=== PATIENT | female | born 1975 | race Caucasian/White ===

== ENCOUNTER → 2021-02-09 09:19 | Outpatient (CLI) | payer MEDICAID, SELFPAY ==
[2021-02-09 10:33] LABS: Absolute Lymphocyte Count 3.04 X10^3/uL (0.83-4.51); Absolute Neutrophil Count 4.5 X10^3/uL (2.0-7.7); Basophil# 0.09 X10^3/uL; Basophil% 1.1 % (0-1); Eosinophil# 0.27 X10^3/uL; Eosinophils% 3.3 % (0-5); Hematocrit 39.2 % (37-47); Hemoglobin 12.6 g/dL (12.0-15.0); Lymphocyte # 3.04 X10^3/ul (0.83-4.51); Lymphocyte % 36.9 % (19-41); Mean Corp Hgb Conc 32.1 g/dL (32-36); Mean Corpuscular Hgb 30.8 pg (27.0-32.0); Mean Corpuscular Volume 95.8 fL (81-99); Mean Platelet Vol. 11.5 fl (6.2-12.0); Monocyte# 0.34 X10^3/uL; Monocyte% 4.1 % (0-10); NRBC Flagged by Analyzer 0 % (0-5); Neutrophil # 4.48 X10^3/uL (2.7-7.7); Neutrophil % 54.4 % (47-70); Platelet Count 210 K/mm3 (150-450); RBC Distribution Width CV 14.4 % (11.6-14.6); RBC Distribution Width SD 51.3 fl (35.1-43.9); Red Blood Count 4.09 M/mm3 (4.2-5.4); White Blood Count 8.2 K/mm3 (4.4-11.0)
[2021-02-09 10:48] LABS: Hemoglobin A1c 5.9 % (3.8-5.6)
[2021-02-09 12:39] LABS: ALB/GLOB Ratio 0.8 RATIO (0.9-2.4); AST(SGOT) 16 U/L (15-37); Alanine Aminotransfer ALT/SGPT 22 U/L (13-56); Albumin, Serum 3.4 g/dL (3.2-5.0); Alkaline Phosphatase 50 U/L (45-117); Anion Gap 4 (5-15); BUN 13 mg/dL (7-18); BUN/Creat Ratio 12.4 RATIO (10-20); Chloride 105 mmol/L (98-107); Cholesterol 284 mg/dL (200); Creatinine, Serum 1.05 mg/dL (0.55-1.02); EST Glomerular Filtration Rate 60 mL/min (>60); Est Glom Filt Rate - Afr Amer 73 mL/min (>60); Globulin 4.1 g/dL (2.2-4.2); Glucose 98 mg/dL (74-106); High Density Lipoprotein 58 mg/dL; Protein, Total 7.5 g/dL (6.4-8.2); Sodium Level 137 mmol/L (136-145); Triglycerides 205 mg/dL; Very Low Density Lipoprotein 41 mg/dL (5-40)
== END ==
PROVIDERS: PCP Family Medicine; Referring Provider Family Medicine; Visit Provider Family Medicine
DX: E11.9 Type 2 diabetes mellitus without complications (principal); E03.9 Hypothyroidism, unspecified
CPT/HCPCS: 36415; 80053; 80061; 83036; 84443; 85025

== ENCOUNTER → 2021-03-28 09:53 | Outpatient (CLI) | payer MEDICAID, SELFPAY ==
[2021-03-28 10:28] LABS: Absolute Neutrophil Count 6.7 X10^3/uL (2.0-7.7); Basophil# 0.04 X10^3/uL; Basophil% 0.5 % (0-1); Eosinophil# 0.07 X10^3/uL; Eosinophils% 0.8 % (0-5); Hematocrit 40.5 % (37-47); Hemoglobin 13.1 g/dL (12.0-15.0); Lymphocyte % 15.9 % (19-41); Mean Corp Hgb Conc 32.3 g/dL (32-36); Mean Corpuscular Hgb 31.6 pg (27.0-32.0); Mean Corpuscular Volume 97.6 fL (81-99); Mean Platelet Vol. 11.9 fl (6.2-12.0); Monocyte# 0.51 X10^3/uL; Monocyte% 5.8 % (0-10); NRBC Flagged by Analyzer 0 % (0-5); Neutrophil # 6.74 X10^3/uL (2.7-7.7); Neutrophil % 76.5 % (47-70); Platelet Count 169 K/mm3 (150-450); RBC Distribution Width CV 12.9 % (11.6-14.6); RBC Distribution Width SD 46.5 fl (35.1-43.9); Red Blood Count 4.15 M/mm3 (4.2-5.4); White Blood Count 8.8 K/mm3 (4.4-11.0)
[2021-03-28 10:48] LABS: ALB/GLOB Ratio 0.8 RATIO (0.9-2.4); AST(SGOT) 13 U/L (15-37); Alanine Aminotransfer ALT/SGPT 20 U/L (13-56); Albumin, Serum 3.4 g/dL (3.2-5.0); Alkaline Phosphatase 74 U/L (45-117); Anion Gap 5 (5-15); BUN 12 mg/dL (7-18); BUN/Creat Ratio 10.7 RATIO (10-20); Chloride 105 mmol/L (98-107); Creatinine, Serum 1.12 mg/dL (0.55-1.02); EST Glomerular Filtration Rate 56 mL/min (>60); Est Glom Filt Rate - Afr Amer 67 mL/min (>60); Globulin 4.2 g/dL (2.2-4.2); Glucose 108 mg/dL (74-106); Protein, Total 7.6 g/dL (6.4-8.2); Sodium Level 137 mmol/L (136-145)
== END ==
PROVIDERS: Family Medicine; PCP Family Medicine; Visit Provider Family Medicine
DX: N39.0 Urinary tract infection, site not specified (principal)
CPT/HCPCS: 36415; 80053; 85025; 87086

== ENCOUNTER → 2021-03-28 10:29 | Outpatient (CLI) | payer MEDICAID, SELFPAY ==
--- NOTE | 2021-03-28 10:31 | CT_ITS ---
STUDY: CT ABDOMEN AND PELVIS WITH CONTRAST REASON FOR EXAM: Female, 45 years old. Hematuria. Right flank pain. PYELONEPHRITIS OF RIGHT KIDNEY RADIATION DOSAGE (If Supplied By Facility): CTDIvol = ( 21.66 ) mGy, DLP = ( 2314.15 ) mGycm TECHNIQUE: Transaxial images were obtained from the dome of the diaphragm to the symphysis pubis without oral contrast. IV 100mL Isovue-300 was administered. Sagittal and coronal images were reconstructed. Individualized dose optimization techniques were used for this CT. COMPARISON: None. FINDINGS: The visualized lung bases are unremarkable. The visualized portions of the heart are within normal limits. Calcified granuloma in the inferior medial aspect of the right lobe of the liver. There are surgical clips in the gallbladder fossa consistent with a prior cholecystectomy. Normal spleen. Normal pancreas. Normal bilateral adrenal glands. Mild degree of right perinephric stranding. Mild degree of heterogeneous contrast uptake in the superior lateral midportion of the right kidney. This may represent a focal area of pyelonephritis. No evidence of perirenal or renal abscess is seen at this time. Normal left kidney. Normal visualized stomach. Normal small intestine. Normal colon. The appendix is visualized and appears normal. There is scattered atherosclerotic calcification of the abdominal aorta, without a demonstrated aneurysm. Normal inferior vena cava. Normal retroperitoneum. Normal urinary bladder. Normal abdominal wall. There are mild degenerative changes of the visualized lumbar spine. CT/Abdomen/Pelvis WITH Contrast IMPRESSION: Mild degree of right perinephric stranding with the heterogeneous enhancement in the upper mid posterior aspect of the right kidney. This may represent a focal area of pyelonephritis. Clinical correlation is recommended. Electronically Signed: Joseph Ceballos MD at 11:23 EDT , Service support ,
== END ==
PROVIDERS: PCP Family Medicine; Referring Provider Family Medicine; Visit Provider Family Medicine
DX: N12 Tubulo-interstitial nephritis, not specified as acute or chronic (principal)
CPT/HCPCS: 36415; 74177; 80053; 85025; 87086; 87088; 87186; Q9967

== ENCOUNTER 2021-04-02 09:40 | Emergency (ER) | payer MEDICAID, SELFPAY ==
[2021-04-02 09:41] VITALS: BP 166/104; PULSE 82; RESP 16; TEMP 37; O2SAT 98; BMI 48.7
[2021-04-02 09:43] VITALS: BP 166/104; PULSE 82; RESP 16; TEMP 37; O2SAT 98
--- NOTE | 2021-04-02 10:09 | ED.VIS.FEGU ---
HPI HPI - Female History of Present Illness Chief Complaint: Complaint Narrative Narrative: 45-year-old female presenting with right flank pain. She states that she had this on the and was diagnosed with pyelonephritis. She has been on Cipro for 5 days. She states her flank pain initially was improving and now has become worse again. Patient states she has had a subjective fever at home. She has nausea as well. She denies vaginal complaints. She denies history of kidney stones. She states she had a CT of the abdomen pelvis when she was diagnosed and did not have any kidney stones noted on the CT but it was noted she had pyelonephritis. PFSH PFSH Allergy/AdvReac Type Severity Reaction Status Date / Time Penicillins Allergy Swelling Verified 04/02/21 09:41 Social History Smoking Status: Unknown if ever smoked ROS ROS ED Constitutional Constitutional ED: Reports fever(s) and subjective Eyes Eyes: Denies blurry vision or change in vision ENT ENT ED: Denies ear pain, rhinorrhea or sore throat Cardiovascular Cardiovascular: Denies chest pain or palpitations Respiratory/Chest Respiratory/Chest: Denies cough or dyspnea Gastrointestinal Gastrointestinal: Reports abdominal pain and nausea; Denies diarrhea or vomiting Genitourinary Genitourinary ED: Reports dysuria and urinary frequency Musculoskeletal Musculoskeletal: Denies arthralgias or myalgias Integumentary Denies abscess or rash Neurologic Neurologic: Denies headache(s) or paresthesias Psychiatric Psychiatric: Denies anxiety or depression EXAM Physical Exam Const Vital Signs: 04/02/21 09:41 04/02/21 09:43 04/02/21 11:56 Temperature 98.6 F 98.6 F Temperature Source Temporal Temporal Pulse Rate 82 82 Respiratory Rate 16 16 Blood Pressure 166/104 H 166/104 H 133/69 H Blood Pressure Mean 124 124 Pulse Ox 98 98 Oxygen Delivery Method Room Air Room Air Positive well nourished General Appearance ED: NAD HEENT Reports moist mucous membranes Negative for trauma Eyes PERRL and EOMs intact bilaterally Resp normal respiratory effort and clear to auscultation bilaterally Cardio regular rate and regular rhythm GI normal to inspection, nondistended, normoactive bowel sounds Back/Spine General Back: CVA tenderness right Extremity normal to inspection General Extremety ED: Negative for edema General Extremity: Negative for edema Neuro oriented x3 Sensorium / Orientation: alert Skin no rashes or lesions noted and no wounds MDM MDM MDM Narrative Medical decision making narrative: Patient presenting for increased pain she thought was due to pyelonephritis. She does appear to have some CVA tenderness on the right however her lab work-up is normal. She has no leukocytosis. It does appear that her urinalysis is negative here today. Patient's urine culture showed that she would have been sensitive to Cipro. Patient was given morphine and then Dilaudid for pain which did improve her pain. CT of the abdomen pelvis does not identify any kidney stones or evidence of kidney infection. Patient counseled on findings and I feel at this time she is safe to be discharged home given her negative work-up. Urine culture was sent to get. Patient given return precautions. Impression: 1. Flank pain Lab Data Attestation: I reviewed the patient's lab results. Labs: Laboratory Results - last 24 hr 04/02/21 04/02/21 04/02/21 10:00 10:20 10:20 WBC 7.2 RBC 4.38 Hgb 13.7 Hct 41.4 MCV 94.5 MCH 31.3 MCHC 33.1 RDW Std Deviation 44.5 H RDW Coeff of [place] 12.8 Plt Count 273 MPV 11.0 Immature Gran % (Auto) 0.400 Neut % (Auto) 53.4 Lymph % (Auto) 39.4 Levy % (Auto) 3.6 Eos % (Auto) 2.5 Baso % (Auto) 0.7 Absolute Neuts (auto) 3.9 Absolute Lymphs (auto) 2.85 Nucleated RBC % 0 Sodium 138 Potassium 4.1 Chloride 107 Carbon Dioxide 26.0 Anion Gap 5 BUN 10 Creatinine 0.81 Estim Creat Clear Calc 85.29 Est GFR (MDRD) Af Amer 98 Est GFR (MDRD) Non-Af 81 BUN/Creatinine Ratio 12.3 Glucose 101 Calcium 9.2 Urine Color Yellow Urine Clarity Sl. Cloudy Urine pH 6.5 Ur Specific [place] 1.015 Urine Protein Negative Urine Glucose (UA) Normal Urine Ketones Negative Urine Occult Blood Negative Urine Nitrite Negative Urine Bilirubin Negative Urine Urobilinogen Normal Ur Leukocyte Esterase 25 H Urine RBC 0 SEEN Urine WBC 0-5 SEEN Ur Squamous Epith Cells 5-10 SEEN Urine Bacteria 1+ Urine Mucus 0 SEEN Radiography Diagnostic Testing: Radiology Impression Abdomen/Pelvis CT 04/02/21 11:06 IMPRESSION: Decreased inflammatory changes surrounding the right kidney. Mild diverticulosis. Electronically Signed: Milena Stein MD at 11:37 EDT Tel , Service support , Discharge Plan Triage Chief Complaint: Complaint ED Provider: Obdulio Adamson Dx/Rx/DC Orders Instructions: ED Flank Pain, Uncertain Cause Primary Care Provider: Jose Wolf Referrals: Jose Wolf MD [Primary Care Provider] - Disposition Disposition: Home, Self Care Discharge Date/Time: 04/02/21 12:00
[2021-04-02 10:16] LABS: Mucous, Urine 0 SEEN /hpf (<or=2+); Red Blood Cells-Urine 0 SEEN /hpf (0-5)
[2021-04-02 10:20] LABS: Color, Urine Yellow (Yellow); Glucose, Dipstick Normal (Normal); Ketone-Dipstick Negative (Negative); Leukocyte Esterase-Dipstick 25 /ul (Negative); Nitrite-Dipstick Negative (Negative); Occult Blood-Urine Negative /ul (Negative); Protein-Dipstick Negative (Negative); Specific Gravity, Urine 1.015 (1.002-1.030); Urine Bilirubin Dipstick Negative (Negative); Urine Clarity Sl. Cloudy (Clear); Urine Urobilinogen Normal (Normal); Urine pH 6.5 (5.0 - 8.0)
[2021-04-02] MEDS: Morphine 4 MG/ML Syringe IV (10:23)
[2021-04-02] MEDS: Ondansetron 4 MG/2 ML Vial IV ×2 (10:24→11:11)
[2021-04-02 10:26] LABS: Absolute Lymphocyte Count 2.85 X10^3/uL (0.83-4.51); Absolute Neutrophil Count 3.9 X10^3/uL (2.0-7.7); Basophil# 0.05 X10^3/uL; Basophil% 0.7 % (0-1); Eosinophil# 0.18 X10^3/uL; Eosinophils% 2.5 % (0-5); Hematocrit 41.4 % (37-47); Hemoglobin 13.7 g/dL (12.0-15.0); Lymphocyte # 2.85 X10^3/ul (0.83-4.51); Lymphocyte % 39.4 % (19-41); Mean Corp Hgb Conc 33.1 g/dL (32-36); Mean Corpuscular Hgb 31.3 pg (27.0-32.0); Mean Corpuscular Volume 94.5 fL (81-99); Monocyte# 0.26 X10^3/uL; Monocyte% 3.6 % (0-10); NRBC Flagged by Analyzer 0 % (0-5); Neutrophil # 3.87 X10^3/uL (2.7-7.7); Neutrophil % 53.4 % (47-70); Platelet Count 273 K/mm3 (150-450); RBC Distribution Width CV 12.8 % (11.6-14.6); RBC Distribution Width SD 44.5 fl (35.1-43.9); Red Blood Count 4.38 M/mm3 (4.2-5.4); White Blood Count 7.2 K/mm3 (4.4-11.0)
[2021-04-02 10:27] LABS: White Blood Cells 0-5 SEEN /hpf (0-5)
[2021-04-02 10:28] LABS: Bacteria 1+ /hpf (None Seen); Squamous Epithelial Cells - UA 5-10 SEEN /hpf (5-10)
[2021-04-02 10:39] LABS: Anion Gap 5 (5-15); BUN 10 mg/dL (7-18); BUN/Creat Ratio 12.3 RATIO (10-20); Calcium,Total 9.2 mg/dL (8.5-10.1); Chloride 107 mmol/L (98-107); Creatinine, Serum 0.81 mg/dL (0.55-1.02); EST Glomerular Filtration Rate 81 mL/min (>60); Est Glom Filt Rate - Afr Amer 98 mL/min (>60); Estimated Creatinine Clearance 85.29 ml/min; Glucose 101 mg/dL (74-106); Potassium 4.1 mmol/L (3.5-5.1); Sodium Level 138 mmol/L (136-145)
--- NOTE | 2021-04-02 11:06 | CT_ITS ---
STUDY: CT ABDOMEN AND PELVIS WITHOUT CONTRAST REASON FOR EXAM: Female, 45 years old. right flank pain RADIATION DOSAGE (If Supplied By Facility): CTDIvol = ( 24.18 ) mGy, DLP = ( 1316.88 ) mGycm TECHNIQUE: Transaxial images were obtained from the dome of the diaphragm to the symphysis pubis without oral contrast, and without intravenous contrast. Sagittal and coronal images were reconstructed. Individualized dose optimization techniques were used for this CT. COMPARISON: 03/28/2021 FINDINGS: The visualized lung bases are unremarkable. Normal liver. There are surgical clips in the gallbladder fossa consistent with a prior cholecystectomy. Normal spleen. Normal pancreas. Normal bilateral adrenal glands. There is decreased perinephric stranding when compared with the prior examination. There are no demonstrated fluid collection to suggest abscess. Evaluation is limited without IV contrast. Again noted is a minimal prominence of the right renal pelvis. Unremarkable left kidney. Normal visualized stomach. Normal small intestine. There are few colonic diverticula consistent with diverticulosis. The appendix is visualized and appears normal. There is atherosclerotic calcifications of the abdominal aorta Normal urinary bladder. Normal abdominal wall. There are diffuse degenerative changes of the visualized lumbar spine. CT/Abdomen/Pelvis without Cont IMPRESSION: Decreased inflammatory changes surrounding the right kidney. Mild diverticulosis. Electronically Signed: Milena Stein MD at 11:37 EDT Tel , Service support ,
[2021-04-02] MEDS: HYDROmorphone 0.5 MG/0.5 ML SYRINGE IV (11:11)
[2021-04-02 11:56] VITALS: BP 133/69
== END 2021-04-02 12:00 | disposition home or self-care (01) ==
PROVIDERS: Emergency Provider Student in an Organized Health Care Education/Training Program; PCP Family Medicine
DX: R10.9 Unspecified abdominal pain (principal); K57.90 Diverticulosis of intestine, part unspecified, without perforation or abscess without bleeding; R11.0 Nausea; Z88.0 Allergy status to penicillin
CPT/HCPCS: 74176; 80048; 81001; 85025; 87077; 87086; 87088; 87186; 96374; 96375; 96376; 99284; J2405

== ENCOUNTER → 2021-04-13 16:00 | Outpatient (CLI) | payer MEDICAID, SELFPAY ==
[2021-04-02 09:41] VITALS: BMI 48.7
[2021-04-13 18:03] LABS: T4 Free Direct 1.14 ng/dL (0.76-1.46)
== END ==
PROVIDERS: PCP Family Medicine; Visit Provider Family Medicine
DX: E03.9 Hypothyroidism, unspecified (principal)
CPT/HCPCS: 36415; 84439; 84443; 84481

== ENCOUNTER → 2021-05-08 17:56 | Outpatient (CLI) | payer MEDICAID, SELFPAY ==
[2021-05-08 17:57] LABS: Bacteria 0 SEEN /hpf (None Seen); White Blood Cells 0 SEEN /hpf (0-5)
[2021-05-08 18:30] LABS: Color, Urine Yellow (Yellow); Glucose, Dipstick Normal (Normal); Ketone-Dipstick Negative (Negative); Leukocyte Esterase-Dipstick Negative /ul (Negative); Nitrite-Dipstick Negative (Negative); Occult Blood-Urine Negative /ul (Negative); Protein-Dipstick Negative (Negative); Urine Bilirubin Dipstick Negative (Negative); Urine Clarity Sl. Cloudy (Clear); Urine Urobilinogen Normal (Normal)
[2021-05-08 18:36] LABS: Mucous, Urine 2+ /hpf (<or=2+); Squamous Epithelial Cells - UA 5-10 SEEN /hpf (5-10)
[2021-05-08 18:37] LABS: Red Blood Cells-Urine 0-5 SEEN /hpf (0-5)
== END ==
PROVIDERS: PCP Family Medicine; Visit Provider Family Medicine
DX: R10.9 Unspecified abdominal pain (principal)
CPT/HCPCS: 81001; 87086; 87088

== ENCOUNTER → 2021-05-17 16:15 | Outpatient (CLI) | payer MEDICAID, SELFPAY ==
--- NOTE | 2021-05-17 16:37 | US_ITS ---
STUDY: RENAL ULTRASOUND - COMPLETE REASON FOR EXAM: Female, 45 years old. PYELONEPHRITIS R KIDNEY TECHNIQUE: Ultrasound evaluation of the kidneys was performed with real-time and static hamm-scale imaging. COMPARISON: None. FINDINGS: RIGHT KIDNEY: Normal location of the right kidney, which is normal in size. The right kidney measures 11.3 x 5.2 x 4.3 cm. There is a normal cortex of the right kidney. The renal cortex measures 1.1 cm. There is no right renal mass or cyst. There are no right renal calculi. There is no right hydronephrosis. DISTAL RIGHT URETER: There is non-visualization of the distal right ureter. There is no demonstrated right ureterovesical junction calculus. There is a visualized right ureteral jet. LEFT KIDNEY: Normal location of the left kidney, which is normal in size. The left kidney measures 12.8 x 4.6 x 5.2 cm. There is a normal cortex of the left kidney. The renal cortex measures 1.3 cm. There is no left renal mass or cyst. There are no left renal calculi. There is no left hydronephrosis. DISTAL LEFT URETER: There is non-visualization of the distal left ureter. There is no demonstrated left ureterovesical junction calculus. There is a visualized left ureteral jet. BLADDER: The distended urinary bladder has a volume of 119 ml.. There is a normal wall thickness of the distended urinary bladder. There is no demonstrated mass within the urinary bladder. There are no demonstrated bladder calculi. US/Kidney and Bladder IMPRESSION: Normal ultrasound of the kidneys and urinary bladder. Electronically Signed: Bolivar Card MD at 17:11 EDT , Service support ,
== END ==
PROVIDERS: PCP Family Medicine; Referring Provider Family Medicine; Visit Provider Family Medicine
DX: N12 Tubulo-interstitial nephritis, not specified as acute or chronic (principal)
CPT/HCPCS: 76770

== ENCOUNTER → 2021-05-28 12:00 | Outpatient (CLI) | payer MEDICAID, SELFPAY ==
[2021-05-28 12:17] LABS: Bacteria 0 SEEN /hpf (None Seen); Mucous, Urine 0 SEEN /hpf (<or=2+); White Blood Cells 0 SEEN /hpf (0-5)
[2021-05-28 15:26] LABS: Absolute Lymphocyte Count 2.85 X10^3/uL (0.83-4.51); Absolute Neutrophil Count 3.8 X10^3/uL (2.0-7.7); Basophil# 0.05 X10^3/uL; Basophil% 0.7 % (0-1); Eosinophil# 0.16 X10^3/uL; Eosinophils% 2.2 % (0-5); Hemoglobin 13.1 g/dL (12.0-15.0); Lymphocyte # 2.85 X10^3/ul (0.83-4.51); Lymphocyte % 39.3 % (19-41); Mean Corpuscular Hgb 30.1 pg (27.0-32.0); Mean Corpuscular Volume 94.3 fL (81-99); Mean Platelet Vol. 12.1 fl (6.2-12.0); Monocyte# 0.36 X10^3/uL; NRBC Flagged by Analyzer 0 % (0-5); Neutrophil # 3.82 X10^3/uL (2.7-7.7); Neutrophil % 52.5 % (47-70); Platelet Count 218 K/mm3 (150-450); RBC Distribution Width CV 13.3 % (11.6-14.6); RBC Distribution Width SD 46.5 fl (35.1-43.9); Red Blood Count 4.35 M/mm3 (4.2-5.4); White Blood Count 7.3 K/mm3 (4.4-11.0)
[2021-05-28 15:44] LABS: Color, Urine Yellow (Yellow); Glucose, Dipstick Normal (Normal); Ketone-Dipstick Negative (Negative); Leukocyte Esterase-Dipstick Negative /ul (Negative); Nitrite-Dipstick Negative (Negative); Occult Blood-Urine 10 /ul (Negative); Protein-Dipstick Negative (Negative); Urine Bilirubin Dipstick Negative (Negative); Urine Clarity Clear (Clear); Urine Urobilinogen Normal (Normal)
[2021-05-28 15:54] LABS: ALB/GLOB Ratio 0.8 RATIO (0.9-2.4); AST(SGOT) 13 U/L (15-37); Alanine Aminotransfer ALT/SGPT 20 U/L (13-56); Albumin, Serum 3.2 g/dL (3.2-5.0); Alkaline Phosphatase 58 U/L (45-117); Anion Gap 3 (5-15); BUN 12 mg/dL (7-18); BUN/Creat Ratio 15.6 RATIO (10-20); Calcium,Total 8.7 mg/dL (8.5-10.1); Chloride 109 mmol/L (98-107); Creatinine, Serum 0.77 mg/dL (0.55-1.02); EST Glomerular Filtration Rate 86 mL/min (>60); Est Glom Filt Rate - Afr Amer 104 mL/min (>60); Glucose 88 mg/dL (74-106); Potassium 3.9 mmol/L (3.5-5.1); Protein, Total 7.2 g/dL (6.4-8.2); Sodium Level 138 mmol/L (136-145)
[2021-05-28 16:12] LABS: Red Blood Cells-Urine 0-5 SEEN /hpf (0-5); Squamous Epithelial Cells - UA 0-5 SEEN /hpf (5-10)
== END ==
PROVIDERS: PCP Family Medicine; Visit Provider Family Medicine
DX: R10.9 Unspecified abdominal pain (principal); R19.7 Diarrhea, unspecified
CPT/HCPCS: 36415; 80053; 81001; 85025; 87086; 87088

== ENCOUNTER 2021-11-20 14:09 | Outpatient (CLI) | payer MEDICAID, SELFPAY ==
[2021-11-20 17:53] LABS: Absolute Lymphocyte Count 3.06 X10^3/uL (0.83-4.51); Absolute Neutrophil Count 3.8 X10^3/uL (2.0-7.7); Basophil# 0.05 X10^3/uL; Basophil% 0.7 % (0-1); Eosinophil# 0.21 X10^3/uL; Eosinophils% 2.8 % (0-5); Hematocrit 41.3 % (37-47); Hemoglobin 13.9 g/dL (12.0-15.0); Lymphocyte # 3.06 X10^3/ul (0.83-4.51); Lymphocyte % 40.5 % (19-41); Mean Corp Hgb Conc 33.7 g/dL (32-36); Mean Corpuscular Hgb 32.1 pg (27.0-32.0); Mean Corpuscular Volume 95.4 fL (81-99); Mean Platelet Vol. 11.7 fl (6.2-12.0); Monocyte% 5.3 % (0-10); NRBC Flagged by Analyzer 0 % (0-5); Neutrophil # 3.81 X10^3/uL (2.7-7.7); Neutrophil % 50.3 % (47-70); Platelet Count 236 K/mm3 (150-450); RBC Distribution Width CV 13.6 % (11.6-14.6); RBC Distribution Width SD 48.2 fl (35.1-43.9); Red Blood Count 4.33 M/mm3 (4.2-5.4); White Blood Count 7.6 K/mm3 (4.4-11.0)
[2021-11-20 18:04] LABS: Erythrocyte Sedimentation Rate 16 mm/hr (0-30)
[2021-11-20 18:23] LABS: ALB/GLOB Ratio 0.9 RATIO (0.9-2.4); AST(SGOT) 20 U/L (15-37); Alanine Aminotransfer ALT/SGPT 29 U/L (13-56); Albumin, Serum 3.5 g/dL (3.2-5.0); Alkaline Phosphatase 61 U/L (45-117); Anion Gap 7 (5-15); BUN 9 mg/dL (7-18); BUN/Creat Ratio 10.8 RATIO (10-20); CRP 4.74 mg/L (0.0-3.0); Calcium,Total 8.7 mg/dL (8.5-10.1); Chloride 104 mmol/L (98-107); Cholesterol 202 mg/dL (200); Creatinine, Serum 0.84 mg/dL (0.55-1.02); EST Glomerular Filtration Rate 78 mL/min (>60); Est Glom Filt Rate - Afr Amer 94 mL/min (>60); Glucose 87 mg/dL (74-106); High Density Lipoprotein 50 mg/dL; Potassium 3.6 mmol/L (3.5-5.1); Protein, Total 7.5 g/dL (6.4-8.2); Sodium Level 137 mmol/L (136-145); Triglycerides 143 mg/dL; Very Low Density Lipoprotein 29 mg/dL (5-40)
[2021-11-20 18:31] LABS: Hemoglobin A1c 6.3 % (3.8-5.6)
[2021-11-23 12:41] LABS: ANTINUCLEAR ANTIBODIES DIRECT Negative (Negative)
== END 2021-11-20 23:59 | disposition home or self-care (01) ==
LOC: MFPLAB 14:13
PROVIDERS: PCP Registered Nurse; Referring Provider Registered Nurse; Visit Provider Registered Nurse
DX: E03.9 Hypothyroidism, unspecified (principal); M25.50 Pain in unspecified joint
CPT/HCPCS: 36415; 80053; 80061; 83036; 85025; 85652; 86038; 86140

== ENCOUNTER 2022-04-08 10:16 | Emergency (ER) | payer MEDICAID, SELFPAY ==
[2022-04-08 10:17] VITALS: BP 154/103; PULSE 88; RESP 14; TEMP 36.4; O2SAT 98; BMI 46.0
--- NOTE | 2022-04-08 10:32 | EX.ED.DYSGE1 ---
HPI History of Present Illness Chief Complaint: Flank Pain Informant: patient Narrative Narrative: 46-year-old female presented to the emergency department with a chief complaint of bilateral flank pain. Patient is concerned she may have pyelonephritis. She notes some dysuria and urinary frequency and cloudy urine. She notes that she has had pain for the past several days which coincides with her urinary symptoms. She states that this feels like her prior pyelonephritis. No fevers or vomiting but she does note some nausea. She also notes that she has a herniated disc in her back that is been causing her significant amount of pain and she is currently awaiting some back injections. No changes in bowel habits. No rashes. [facility] Medical History Hypothyroid Home Medications hydrocodone-acetaminophen 5-325mg 5mg-325mg 1 tab PO Q6H PRN PRN Pain 3 days #12 TABLETS 04/08/22 [Rx Last Taken Unknown] levothyroxine 150 mcg tablet 150 mcg PO DAILY 04/08/22 [History Last Taken Unknown] sulfamethoxazole 800 mg-trimethoprim 160 mg tablet 1 tab PO BID #14 TABLETS 04/08/22 [Rx Last Taken Unknown] Allergy/AdvReac Type Severity Reaction Status Date / Time Penicillins Allergy Swelling Verified 04/08/22 10:19 Social History (Updated 04/08/22 @ 10:[address] Jose Adkins DO) Smoking Status: Light Smoker (<10/day) substance use type: does not use ROS ROS ED Constitutional Constitutional ED: Denies chills or weight loss Eyes Eyes: Denies change in vision or diplopia ENT ENT ED: Denies ear pain, rhinorrhea or sore throat Cardiovascular Cardiovascular: Denies chest pain, orthopnea, palpitations or racing heartbeat Respiratory/Chest Respiratory/Chest: Denies cough, dyspnea or orthopnea Gastrointestinal Gastrointestinal: Denies abdominal pain, diarrhea, nausea or vomiting Genitourinary Genitourinary ED: Denies dysuria, hematuria or urinary frequency Musculoskeletal Musculoskeletal: Reports back pain; Denies arthralgias, myalgias or neck pain Integumentary Denies abscess or rash Neurologic Neurologic: Denies headache(s) or weakness Psychiatric Psychiatric: Denies anxiety, depression, suicidal ideation or suicidal thoughts Endocrine Endocrinology: Denies polydipsia, polyphagia or polyuria Allergic/Immunologic Allergic/Immunologic ED: Denies mouth swelling, tongue swelling or urticaria EXAM Physical Exam Const Vital Signs: 04/08/22 10:17 Temperature 97.5 F L Temperature Source Temporal Pulse Rate 88 Respiratory Rate 14 Blood Pressure 154/103 H Blood Pressure Mean 120 Pulse Ox 98 Oxygen Delivery Method Room Air Positive well nourished, well developed and obese General Appearance ED: well developed Nutritional Appearance: obese HEENT Reports normocephalic, head/scalp atraumatic and moist mucous membranes Eyes PERRL and EOMs intact bilaterally Neck no lymphadenopathy, supple and no JVD Resp normal respiratory effort and clear to auscultation bilaterally Cardio regular rate, regular rhythm and no murmurs GI normal to inspection, nondistended, normoactive bowel sounds and non-tender Palpation: soft Back/Spine normal ROM Back/Spine Narrative: Specifically no vesicular rash noted General Back: CVA tenderness bilateral Extremity normal to inspection General Extremety ED: Negative for edema General Extremity: Negative for edema Neuro oriented x3 and CN's II-XII intact bilaterally Sensorium / Orientation: alert Motor Exam: strength 5/5 throughout Psych mental status grossly normal Mood & Affect: Negative for depressed or tearful Skin no rashes or lesions noted and no wounds MDM MDM MDM Narrative Medical decision making narrative: White count is 7.8 with a normal differential. Creatinine 0.75. Urinalysis shows 5-10 squamous cells but also 10-25 white cells positive leukocyte Estrace and 2+ bacteria. Given the patient's symptoms and her history of frequent UTIs thinks reasonable to culture this and we can start treatment with Bactrim. Patient to return if worsening or concerns Lab Data Attestation: I reviewed the patient's lab results. Labs: Laboratory Results - last 24 hr 04/08/22 04/08/22 04/08/22 10:30 10:30 10:53 WBC 7.8 RBC 4.13 L Hgb 13.1 Hct 39.7 MCV 96.1 MCH 31.7 MCHC 33.0 RDW Std Deviation 54.4 H RDW Coeff of [place] 15.2 H Plt Count 179 MPV 10.9 Immature Gran % (Auto) 0.100 Neut % (Auto) 54.2 Lymph % (Auto) 36.8 [place] % (Auto) 4.4 Eos % (Auto) 3.5 Baso % (Auto) 1.0 Absolute Neuts (auto) 4.2 Absolute Lymphs (auto) 2.87 Nucleated RBC % 0 Sodium 141 Potassium 3.9 Chloride 108 H Carbon Dioxide 24.0 Anion Gap 9 BUN 20 H Creatinine 0.75 Estim Creat Clear Calc 91.15 Est GFR (MDRD) Af Amer 107 Est GFR (MDRD) Non-Af 88 BUN/Creatinine Ratio 26.7 H Glucose 142 H Calcium 8.7 Urine Color Yellow Urine Clarity Sl. Cloudy Urine pH 6.0 Ur Specific [place] 1.020 Urine Protein 15 H Urine Glucose (UA) Normal Urine Ketones Negative Urine Occult Blood Negative Urine Nitrite Negative Urine Bilirubin Negative Urine Urobilinogen Normal Ur Leukocyte Esterase 100 H Urine RBC 0 SEEN Urine WBC 10-25 SEEN Ur Squamous Epith Cells 5-10 SEEN Urine Bacteria 2+ Urine Mucus 0 SEEN Urine Test Negative Discharge Plan Triage Chief Complaint: Flank Pain ED Provider: Jose Adkins Dx/Rx/DC Orders Clinical Impression: Pyelonephritis, Acute flank pain Instructions: ED Pyelonephritis, Female (Adult) Prescriptions: New hydrocodone-acetaminophen [hydrocodone-acetaminophen] 5-325 mg tablet 1 tab PO Q6H PRN PRN (Reason: Pain) 3 Days Qty: 12 0RF sulfamethoxazole-trimethoprim [sulfamethoxazole-trimethoprim] 800-160 mg tablet 1 tab PO BID Qty: 14 0RF No Action levothyroxine 150 mcg Tablet 150 mcg PO DAILY Primary Care Provider: Brenda Cortes NP Referrals: Brenda Cortes NP, [employer] [Primary Care Provider] - As Needed Disposition Disposition: Home, Self Care
[2022-04-08 10:40] LABS: Absolute Lymphocyte Count 2.87 X10^3/uL (0.83-4.51); Absolute Neutrophil Count 4.2 X10^3/uL (2.0-7.7); Basophil# 0.08 X10^3/uL; Eosinophil# 0.27 X10^3/uL; Eosinophils% 3.5 % (0-5); Hematocrit 39.7 % (37-47); Hemoglobin 13.1 g/dL (12.0-15.0); Lymphocyte # 2.87 X10^3/ul (0.83-4.51); Lymphocyte % 36.8 % (19-41); Mean Corpuscular Hgb 31.7 pg (27.0-32.0); Mean Corpuscular Volume 96.1 fL (81-99); Mean Platelet Vol. 10.9 fl (6.2-12.0); Monocyte# 0.34 X10^3/uL; Monocyte% 4.4 % (0-10); NRBC Flagged by Analyzer 0 % (0-5); Neutrophil # 4.23 X10^3/uL (2.7-7.7); Neutrophil % 54.2 % (47-70); Platelet Count 179 K/mm3 (150-450); RBC Distribution Width CV 15.2 % (11.6-14.6); RBC Distribution Width SD 54.4 fl (35.1-43.9); Red Blood Count 4.13 M/mm3 (4.2-5.4); White Blood Count 7.8 K/mm3 (4.4-11.0)
[2022-04-08 10:56] LABS: Anion Gap 9 (5-15); BUN 20 mg/dL (7-18); BUN/Creat Ratio 26.7 RATIO (10-20); Calcium,Total 8.7 mg/dL (8.5-10.1); Chloride 108 mmol/L (98-107); Creatinine, Serum 0.75 mg/dL (0.55-1.02); EST Glomerular Filtration Rate 88 mL/min (>60); Est Glom Filt Rate - Afr Amer 107 mL/min (>60); Estimated Creatinine Clearance 91.15 ml/min; Glucose 142 mg/dL (74-106); Potassium 3.9 mmol/L (3.5-5.1); Sodium Level 141 mmol/L (136-145)
[2022-04-08] MEDS: Ketorolac 30 MG/ML Syringe IV (10:58)
[2022-04-08 11:00] LABS: Mucous, Urine 0 SEEN /hpf (<or=2+); Red Blood Cells-Urine 0 SEEN /hpf (0-5)
[2022-04-08 11:02] LABS: Color, Urine Yellow (Yellow); Glucose, Dipstick Normal (Normal); Ketone-Dipstick Negative (Negative); Leukocyte Esterase-Dipstick 100 /ul (Negative); Nitrite-Dipstick Negative (Negative); Occult Blood-Urine Negative /ul (Negative); Protein-Dipstick 15 mg/dl (Negative); Urine Bilirubin Dipstick Negative (Negative); Urine Clarity Sl. Cloudy (Clear); Urine Urobilinogen Normal (Normal)
[2022-04-08 11:08] LABS: Bacteria 2+ /hpf (None Seen); Squamous Epithelial Cells - UA 5-10 SEEN /hpf (5-10); White Blood Cells 10-25 SEEN /hpf (0-5)
[2022-04-08 11:09] LABS: Internal QC Validated? YES +Cl - CLEAR BKGD; Pregnancy, Urine Negative Negative
[2022-04-08 12:33] VITALS: BP 142/65; PULSE 90; RESP 15; O2SAT 98
== END 2022-04-08 12:34 | disposition home or self-care (01) ==
PROVIDERS: Emergency Provider Emergency Medicine; PCP Registered Nurse; Visit Provider Emergency Medicine
DX: N12 Tubulo-interstitial nephritis, not specified as acute or chronic (principal); F17.210 Nicotine dependence, cigarettes, uncomplicated; R35.0 Frequency of micturition; R30.0 Dysuria; E03.9 Hypothyroidism, unspecified; E66.9 Obesity, unspecified; Z79.899 Other long term (current) drug therapy
CPT/HCPCS: 80048; 81001; 81025; 85025; 87086; 87088; 96374; 99282; A4216

== ENCOUNTER 2022-04-30 11:14 | Emergency (ER) | payer MEDICAID, SELFPAY ==
[2022-04-30 11:17] VITALS: BP 147/103; PULSE 82; RESP 14; TEMP 36.2; O2SAT 96; BMI 46.0
[2022-04-30 11:32] LABS: Mucous, Urine 0 SEEN /hpf (<or=2+)
[2022-04-30 11:45] LABS: Color, Urine Yellow (Yellow); Glucose, Dipstick Normal (Normal); Ketone-Dipstick Negative (Negative); Leukocyte Esterase-Dipstick 500 /ul (Negative); Nitrite-Dipstick Negative (Negative); Occult Blood-Urine 25 /ul (Negative); Protein-Dipstick 30 mg/dl (Negative); Urine Bilirubin Dipstick Negative (Negative); Urine Clarity Sl. Cloudy (Clear); Urine Urobilinogen Normal (Normal); Urine pH 6.5 (5.0 - 8.0)
[2022-04-30 11:53] LABS: Bacteria 1+ /hpf (None Seen); Internal QC Validated? YES +Cl - CLEAR BKGD; Pregnancy, Urine Negative Negative; Red Blood Cells-Urine 0-5 SEEN /hpf (0-5); Squamous Epithelial Cells - UA 0-5 SEEN /hpf (5-10); White Blood Cells 25-50 SEEN /hpf (0-5)
[2022-04-30] MEDS: 0.9% Normal Saline 1,000 ML 1000 ML IV (12:03)
[2022-04-30] MEDS: Ketorolac 15 MG/ML Vial IV (12:03)
[2022-04-30 12:13] LABS: Absolute Lymphocyte Count 2.55 X10^3/uL (0.83-4.51); Absolute Neutrophil Count 5.3 X10^3/uL (2.0-7.7); Basophil# 0.06 X10^3/uL; Basophil% 0.7 % (0-1); Eosinophil# 0.19 X10^3/uL; Eosinophils% 2.2 % (0-5); Hematocrit 37.5 % (37-47); Hemoglobin 12.8 g/dL (12.0-15.0); Lymphocyte # 2.55 X10^3/ul (0.83-4.51); Mean Corp Hgb Conc 34.1 g/dL (32-36); Mean Corpuscular Hgb 32.6 pg (27.0-32.0); Mean Corpuscular Volume 95.4 fL (81-99); Mean Platelet Vol. 11.1 fl (6.2-12.0); Monocyte# 0.42 X10^3/uL; Monocyte% 4.9 % (0-10); NRBC Flagged by Analyzer 0 % (0-5); Neutrophil # 5.25 X10^3/uL (2.7-7.7); Platelet Count 187 K/mm3 (150-450); RBC Distribution Width CV 14.8 % (11.6-14.6); RBC Distribution Width SD 52.3 fl (35.1-43.9); Red Blood Count 3.93 M/mm3 (4.2-5.4); White Blood Count 8.5 K/mm3 (4.4-11.0)
[2022-04-30 12:19] LABS: Anion Gap 3 (5-15); BUN 12 mg/dL (7-18); Calcium,Total 8.7 mg/dL (8.5-10.1); Chloride 111 mmol/L (98-107); Creatinine, Serum 0.86 mg/dL (0.55-1.02); EST Glomerular Filtration Rate 76 mL/min (>60); Est Glom Filt Rate - Afr Amer 92 mL/min (>60); Estimated Creatinine Clearance 79.49 ml/min; Glucose 110 mg/dL (74-106); Potassium 3.9 mmol/L (3.5-5.1); Sodium Level 139 mmol/L (136-145)
--- NOTE | 2022-04-30 12:47 | RAD_ITS ---
INDICATION: sob, chest tightness EXAMINATION/TECHNIQUE: X-RAY - XR Chest 2 Views COMPARISON: None. FINDINGS: LINES/DEVICES: None. LUNGS: Mild peribronchial cuffing would recommend clinical correlation for bronchitis or airway disease. The bronchovascular markings otherwise unremarkable. No consolidation, edema or effusion. No pneumothorax. MEDIASTINUM AND CARDIOVASCULAR STRUCTURES: Cardiac silhouette not enlarged. Central airways and mediastinal contour are unremarkable. BONES AND SOFT TISSUES: Unremarkable. RAD/Chest PA and Lateral IMPRESSION: Mild peribronchial cuffing would recommend clinical correlation for bronchitis or airway disease. Electronically Signed: Cesar Roman MD at 13:23 EDT ,
--- NOTE | 2022-04-30 14:08 | EDS_ITS ---
HPI History of Present Illness Chief Complaint: Complaint Informant: patient Narrative Narrative: Patient is a 46-year-old female with history of recent urinary tract infection presenting with 2 to 3 days of urinary symptoms. Patient states she has been having cloudy urine and then yesterday started having burning with urination. She had associated frequency and urgency. She started having some discomfort in her upper back and hurts to take a deep breath. She states her whole back does feel sore. That became worse today as well. This morning when she woke up she states that there is discharge from her eyes her eyes are crusted shut. Denies any cough. She denies any fever or chills. She has a history of DVT or PE. She was recently on a course of Bactrim for her UTI. She states she has had multiple kidney infections over the past few months but is not seen urology. Did not take anything for symptoms prior to arrival. No other complaint at this time. Denies any sick contacts. Chart review shows the patient was seen on 04/08/2022 for bilateral flank pain. She was prescribed Bactrim at that time. [facility] Medical History Hypothyroid Home Medications hydrocodone-acetaminophen 5-325mg 5mg-325mg 1 tab PO Q6H PRN PRN Pain 3 days #12 TABLETS 04/08/22 [Rx Last Taken Unknown] levothyroxine 150 mcg tablet 150 mcg PO DAILY 04/08/22 [History Last Taken Unknown] sulfamethoxazole 800 mg-trimethoprim 160 mg tablet 1 tab PO BID #14 TABLETS 04/08/22 [Rx Last Taken Unknown] cephalexin 500 mg capsule 500 mg PO TID #21 caps 04/30/22 [Rx Last Taken Unknown] phenazopyridine 200 mg tablet (Pyridium) 200 mg PO TID PRN pain 6 doses #6 tabs 04/30/22 [Rx Last Taken Unknown] Allergy/AdvReac Type Severity Reaction Status Date / Time Penicillins Allergy Swelling Verified 04/30/22 11:19 Social History Smoking Status: Light Smoker (<10/day) substance use type: does not use ROS ROS ED Constitutional Constitutional ED: Reports chills; Denies fever(s) Eyes Eyes: Reports other Details: eye discharge ; Denies change in vision ENT ENT ED: Denies rhinorrhea or sore throat Cardiovascular Cardiovascular: Denies chest pain or palpitations Respiratory/Chest Respiratory/Chest: Reports cough; Denies dyspnea or dyspnea on exertion Gastrointestinal Gastrointestinal: Denies abdominal pain, nausea or vomiting Genitourinary Genitourinary ED: Reports dysuria and urinary frequency; Denies hematuria Musculoskeletal Musculoskeletal: Reports back pain; Denies myalgias Integumentary Denies rash Neurologic Neurologic: Denies headache(s) or weakness Psychiatric Psychiatric: Denies anxiety EXAM Physical Exam Const Vital Signs: 04/30/22 11:17 Temperature 97.1 F L Temperature Source Temporal Pulse Rate 82 Respiratory Rate 14 Blood Pressure 147/103 H Blood Pressure Mean 117 Pulse Ox 96 Oxygen Delivery Method Room Air Positive well nourished, well developed and obese General Appearance ED: well developed and NAD Nutritional Appearance: obese HEENT Reports moist mucous membranes Eyes PERRL and EOMs intact bilaterally Eyes Narrative: no conjunctivitis or discharge appreciated Neck supple Chest Wall inspection of chest normal and palpation of chest normal Resp normal respiratory effort and clear to auscultation bilaterally Auscultation: Negative for rales, rhonchi or wheezes Cardio regular rate, regular rhythm and no murmurs GI normal to inspection, nondistended, normoactive bowel sounds, non-tender and non-distended Back/Spine no CVA tenderness Thoracic Spine / Upper Back: Negative for thoracic spinal tenderness or paraspinal muscle tenderness Lumbar Spine / Lower Back: Negative for lumbar spinal tenderness Extremity normal to inspection General Extremety ED: Negative for edema or tenderness General Extremity: Negative for edema Neuro oriented x3 Motor Exam: Negative for general weakness Psych mental status grossly normal Skin no rashes or lesions noted MDM MDM MDM Narrative Medical decision making narrative: Patient is evaluated for 3 to 4 days of urinary symptoms as well as now some back discomfort and pleuritic chest discomfort. Patient appears nontoxic no acute distress. Vital signs are significant only for mild hypertension with a blood pressure 147/103. Physical exam is benign. She is afebrile. CBC is normal. She does not have a leukocytosis. BMP is unremarkable. Urinalysis is concerning with infection with 500 leukoesterase, 25-50 white blood cells and 1+ bacteria. Urine culture sent. Patient be switched to Keflex. While she does have a history of an allergic reaction to penicillin she states she is had Keflex in the past and tolerated it. She is given first dose in the emergency room. Chest x-ray obtained which is interpreted by myself as well as radiology shows mild peribronchial cuffing consistent with bronchitis or viral illness. I suspect patient does have some type of viral URI symptoms which is causing her backslash chest symptoms. Patient is informed of this. Her COVID test is negative in the emergency room. Patient is given a referral for urology given her frequent UTIs. On repeat evaluation after receiving IV fluids and Toradol she states she is feeling better. She be discharged home with antibiotics, Prodium and instructions to alternate ibuprofen and Tylenol for symptom control. Lab Data Attestation: I reviewed the patient's lab results. Labs: Laboratory Results - last 24 hr 04/30/22 04/30/22 04/30/22 11:20 12:00 12:00 WBC 8.5 RBC 3.93 L Hgb 12.8 Hct 37.5 MCV 95.4 MCH 32.6 H MCHC 34.1 RDW Std Deviation 52.3 H RDW Coeff of [place] 14.8 H Plt Count 187 MPV 11.1 Immature Gran % (Auto) 0.200 Neut % (Auto) 62.0 Lymph % (Auto) 30.0 [place] % (Auto) 4.9 Eos % (Auto) 2.2 Baso % (Auto) 0.7 Absolute Neuts (auto) 5.3 Absolute Lymphs (auto) 2.55 Nucleated RBC % 0 Sodium 139 Potassium 3.9 Chloride 111 H Carbon Dioxide 25.0 Anion Gap 3 L BUN 12 Creatinine 0.86 Estim Creat Clear Calc 79.49 Est GFR (MDRD) Af Amer 92 Est GFR (MDRD) Non-Af 76 BUN/Creatinine Ratio 14.0 Glucose 110 H Calcium 8.7 Urine Color Yellow Urine Clarity Sl. Cloudy Urine pH 6.5 Ur Specific [place] 1.010 Urine Protein 30 H Urine Glucose (UA) Normal Urine Ketones Negative Urine Occult Blood 25 H Urine Nitrite Negative Urine Bilirubin Negative Urine Urobilinogen Normal Ur Leukocyte Esterase 500 H Urine RBC 0-5 SEEN Urine WBC 25-50 SEEN Ur Squamous Epith Cells 0-5 SEEN Urine Bacteria 1+ Urine Mucus 0 SEEN Urine Test Negative Radiography Diagnostic Testing: Clinical Impression(s) from Imaging Studies Chest X-Ray 04/30/22 12:47 IMPRESSION: Mild peribronchial cuffing would recommend clinical correlation for bronchitis or airway disease. Electronically Signed: Cesar Roman MD at 13:23 EDT , Discharge Plan Triage Chief Complaint: Complaint ED Provider: Yani Harrell Dx/Rx/DC Orders Clinical Impression: Viral illness, UTI (urinary tract infection) Instructions: ED CYSTITIS Female Adult, ED Viral Syndrome (Adult) Prescriptions: New cephalexin 500 mg capsule 500 mg PO TID Qty: 21 0RF phenazopyridine [Pyridium] 200 mg tablet 200 mg PO TID PRN (Reason: pain) Qty: 6 0RF No Action levothyroxine 150 mcg Tablet 150 mcg PO DAILY hydrocodone-acetaminophen [hydrocodone-acetaminophen] 5-325 mg tablet 1 tab PO Q6H PRN PRN (Reason: Pain) 3 Days Qty: 12 0RF sulfamethoxazole-trimethoprim [sulfamethoxazole-trimethoprim] 800-160 mg tablet 1 tab PO BID Qty: 14 0RF Primary Care Provider: Monse ELDER Referrals: Monse ELDER [Other] Jt Jules MD [Med Staff - Active Staff] - 3-5 Days if not improving Disposition Disposition: Home, Self Care
[2022-04-30] MEDS: Cephalexin 250 MG Capsule 500 MG PO (14:22)
== END 2022-04-30 14:29 | disposition home or self-care (01) ==
PROVIDERS: Emergency Provider Emergency Medicine; Visit Provider Emergency Medicine
DX: B34.9 Viral infection, unspecified (principal); N39.0 Urinary tract infection, site not specified; F17.200 Nicotine dependence, unspecified, uncomplicated
CPT/HCPCS: 71046; 80048; 81001; 81025; 85025; 87086; 87088; 87811; 96361; 96374; 99284; J7030; A4216

== ENCOUNTER → 2024-01-29 | Outpatient (CLI) | payer MEDICAID, SELFPAY ==
[2024-01-29 17:41] LABS: Absolute Lymphocyte Count 3.58 X10^3/uL (0.83-4.51); Absolute Neutrophil Count 3.8 X10^3/uL (2.0-7.7); Basophil# 0.09 X10^3/uL; Basophil% 1.1 % (0-1); Eosinophil# 0.12 X10^3/uL; Eosinophils% 1.5 % (0-5); Hematocrit 35.5 % (37-47); Hemoglobin 11.8 g/dL (12.0-15.0); Lymphocyte # 3.58 X10^3/ul (0.83-4.51); Lymphocyte % 45.2 % (19-41); Mean Corp Hgb Conc 33.2 g/dL (32-36); Mean Corpuscular Hgb 32.2 pg (27.0-32.0); Mean Corpuscular Volume 96.7 fL (81-99); Mean Platelet Vol. 11.9 fl (6.2-12.0); Monocyte# 0.36 X10^3/uL; Monocyte% 4.5 % (0-10); NRBC Flagged by Analyzer 0 % (0-5); Neutrophil # 3.76 X10^3/uL (2.7-7.7); Neutrophil % 47.6 % (47-70); Platelet Count 233 K/mm3 (150-450); RBC Distribution Width CV 14.6 % (11.6-14.6); RBC Distribution Width SD 51.9 fl (35.1-43.9); Red Blood Count 3.67 M/mm3 (4.2-5.4); White Blood Count 7.9 K/mm3 (4.4-11.0)
[2024-01-29 17:56] LABS: Vitamin D,25 Hydroxy 8.2 ng/mL
[2024-01-29 18:04] LABS: Hemoglobin A1c 5.4 % (3.8-5.6)
[2024-01-29 19:04] LABS: AST(SGOT) 34 U/L (15-37); Alanine Aminotransfer ALT/SGPT 23 U/L (13-56); Alkaline Phosphatase 52 U/L (45-117); Anion Gap 6 (5-15); BUN 8 mg/dL (7-18); BUN/Creat Ratio 7.3 RATIO (10-20); Calcium,Total 9.3 mg/dL (8.5-10.1); Chloride 105 mmol/L (98-107); Cholesterol 274 mg/dL (200); EST Glomerular Filtration Rate 56 mL/min (>60); Est Glom Filt Rate - Afr Amer 68 mL/min (>60); Globulin 4.1 g/dL (2.2-4.2); Glucose 94 mg/dL (74-106); High Density Lipoprotein 62 mg/dL; Potassium 3.2 mmol/L (3.5-5.1); Protein, Total 8.1 g/dL (6.4-8.2); Sodium Level 136 mmol/L (136-145); T4 Free Direct 0.62 ng/dL (0.76-1.46); Triglycerides 161 mg/dL; Very Low Density Lipoprotein 32 mg/dL (5-40)
[2024-02-02 16:09] LABS: Thyroglobulin Antibody > 2250.0 IU/mL (0.0-0.9); Thyroid Peroxidase AB 375 IU/mL (0-34); Thyroid Stim Immunoglob <0.10 IU/L (0.00-0.55)
== END | disposition home or self-care (01) ==
LOC: MFPLAB 14:44
PROVIDERS: Visit Provider Family Medicine
DX: E78.5 Hyperlipidemia, unspecified (principal); E11.9 Type 2 diabetes mellitus without complications; E03.9 Hypothyroidism, unspecified
CPT/HCPCS: 36415; 80053; 80061; 82306; 83036; 84439; 84443; 84445; 85025; 86376; 86800

== ENCOUNTER → 2024-02-03 | Outpatient (CLI) | payer MEDICAID, SELFPAY ==
[2024-02-03 17:33] LABS: Hematocrit 35.8 % (37-47); Hemoglobin 11.6 g/dL (12.0-15.0); Mean Corp Hgb Conc 32.4 g/dL (32-36); Mean Corpuscular Hgb 31.6 pg (27.0-32.0); Mean Corpuscular Volume 97.5 fL (81-99); Mean Platelet Vol. 11.9 fl (6.2-12.0); Platelet Count 225 K/mm3 (150-450); RBC Distribution Width SD 53.7 fl (35.1-43.9); Red Blood Count 3.67 M/mm3 (4.2-5.4); White Blood Count 6.7 K/mm3 (4.4-11.0)
[2024-02-03 18:03] LABS: Anion Gap 5 (5-15); BUN 8 mg/dL (7-18); BUN/Creat Ratio 7.6 RATIO (10-20); Calcium,Total 9.3 mg/dL (8.5-10.1); Chloride 105 mmol/L (98-107); Creatinine, Serum 1.05 mg/dL (0.55-1.02); EST Glomerular Filtration Rate 59 mL/min (>60); Est Glom Filt Rate - Afr Amer 72 mL/min (>60); Glucose 117 mg/dL (74-106); Potassium 3.5 mmol/L (3.5-5.1); Sodium Level 138 mmol/L (136-145); T4 Free Direct 0.93 ng/dL (0.76-1.46)
== END | disposition home or self-care (01) ==
LOC: MFPLAB 15:26
PROVIDERS: Nurse Practitioner Family; Visit Provider Family Medicine
DX: E03.9 Hypothyroidism, unspecified (principal)
CPT/HCPCS: 36415; 80048; 84439; 84443; 85027

== ENCOUNTER → 2024-02-10 | Outpatient (CLI) | payer MEDICAID, SELFPAY ==
--- NOTE | 2024-02-10 13:53 | US_ITS ---
STUDY: THYROID ULTRASOUND REASON FOR EXAM: Female, 48 years old. HYPOTHYROID TECHNIQUE: Ultrasound evaluation of the thyroid was performed with real-time and static ybarra-scale imaging. COMPARISON: None. FINDINGS: RIGHT LOBE: The right lobe of the thyroid gland measures 3.8 x 1.5 x 1.2 cm. There is a heterogeneous echotexture. There are no demonstrated solid, cystic or complex lesions. LEFT LOBE: The left lobe of the thyroid gland measures 4.2 x 1.7 x 1.5 cm. There is a heterogeneous echotexture. There are no demonstrated solid, cystic or complex lesions. ISTHMUS: The isthmus measures 4 mm thick. . The regional lymph nodes are normal. US/Thyroid IMPRESSION: Thyroiditis but no dominant nodule. Electronically Signed: Collin Benson MD at 20:17 EDT ,
== END | disposition home or self-care (01) ==
LOC: US 13:38
PROVIDERS: PCP Family Medicine; Referring Provider Family Medicine; Visit Provider Family Medicine
DX: Z79.899 Other long term (current) drug therapy (principal); E03.9 Hypothyroidism, unspecified; R42 Dizziness and giddiness
CPT/HCPCS: 76536; 93005

== ENCOUNTER → 2024-03-16 | Outpatient (CLI) | payer MEDICAID, SELFPAY ==
--- NOTE | 2024-03-16 08:54 | ECHOD_ITS ---
Reason For Study: CHEST PAIN Procedure This was a 2D Doppler, Color Flow transthoracic echocardiogram. Exam performed in department. Left Ventricle Normal LV size. Mild concentric left ventricular hypertrophy. Left ventricular systolic function is normal. The left ventricular ejection fraction is 60 %. No regional wall motion abnormalities noted. Right Ventricle Normal RV size. Normal systolic function. Atria Normal left atrium. Normal right atrium. Mitral Valve Normal mitral valve. Tricuspid Valve Normal tricuspid valve. Mild tricuspid valve insufficiency. Pulmonary artery systolic pressure is 24 mmHg. Aortic Valve Trisinus/trileaflet aortic valve. Pulmonic Valve Normal pulmonic valve. Great Vessels Normal aortic root. The pulmonary artery is normal size. Normal inferior vena cava. Pericardium/Pleural No pericardial effusion. MMode/2D Measurements & Calculations LVIDd: 4.9 cm IVSd: 1.4 cm LVOT diam: 2.0 cm LVIDs: 2.8 cm LVPWd: 1.2 cm LVOT area: 3.3 cm2 RVDd: 3.8 cm FS: 42.3 % Ao root diam: 3.0 cm LAV(MOD-bp): 60.9 ml LVAd ap4: 25.1 cm2 LAV(MOD-bp) Indexed: 26.5 ml/m2 LVLd ap4: 7.0 cm LAV(MOD-sp2): 59.9 ml EDV(MOD-sp4): 73.2 ml LAV(MOD-sp4): 57.6 ml EDV(sp4-el): 76.0 ml LVAs ap4: 14.8 cm2 LVLs ap4: 6.2 cm ESV(MOD-sp4): 28.2 ml ESV(sp4-el): 30.3 ml EF(MOD-sp4): 61.4 % EF(sp4-el): 60.1 % LVAd ap2: 23.4 cm2 SV(MOD-sp4): 44.9 ml SV(MOD-sp2): 39.5 ml LVLd ap2: 7.5 cm EDV(MOD-sp2): 59.9 ml EDV(sp2-el): 61.9 ml LVAs ap2: 12.0 cm2 LVLs ap2: 6.0 cm ESV(MOD-sp2): 20.4 ml ESV(sp2-el): 20.3 ml EF(MOD-sp2): 66.0 % SV(sp4-el): 45.7 ml LA dimension(2D): 4.2 cm LA A4 area: 21.0 cm2 RA A4 area: 12.7 cm2 TAPSE: 1.9 cm Time Measurements MV dec time: 0.20 sec Doppler Measurements & Calculations MV E max antonio: 99.5 cm/sec Lat Peak E' Antonio: 12.7 cm/sec Med Peak E' Antonio: 7.4 cm/sec MV A max antonio: 45.3 cm/sec E/E' lat: 7.8 E/E' med: 13.4 MV E/A: 2.2 Ao V2 max: 133.7 cm/sec LV V1 max: 110.1 cm/sec MV dec slope: 496.6 cm/sec2 Ao max P.1 mmHg LV V1 max P.8 mmHg Ao V2 mean: 94.1 cm/sec LV V1 mean P.9 mmHg Ao mean P.0 mmHg LV V1 mean: 79.8 cm/sec Ao V2 VTI: 30.1 cm LV V1 VTI: 25.1 cm AV (velocity ratio): 0.83 BG(I,D): 2.7 cm2 BG(V,D): 2.7 cm2 SV(LVOT): 82.2 ml PA V2 max: 98.6 cm/sec TR max antonio: 225.3 cm/sec PA max PG (full): 2.1 mmHg TR max P.3 mmHg ECHO/Echo Complete Interpretation Summary Normal LV size. Left ventricular systolic function is normal. The left ventricular ejection fraction is 60 %. Mild concentric left ventricular hypertrophy. Pulmonary artery systolic pressure is 24 mmHg. Structurally normal valves. Ordering Physician: Citlalli Malone Performed By: Kaylen Ellis RDCS
== END | disposition home or self-care (01) ==
LOC: CVS 08:50
PROVIDERS: PCP Family Medicine; Visit Provider Family Medicine
DX: R07.89 Other chest pain (principal)
CPT/HCPCS: 93306

== ENCOUNTER → 2024-04-09 | Outpatient (CLI) | payer MEDICAID, SELFPAY ==
[2024-04-09 18:01] LABS: Thyroid Stim Hormone (TSH) 3.01 uIU/mL (0.358-3.74)
== END | disposition home or self-care (01) ==
LOC: MFPLAB 13:56
PROVIDERS: PCP Family Medicine; Visit Provider Family Medicine
DX: E03.9 Hypothyroidism, unspecified (principal)
CPT/HCPCS: 36415; 84443

== ENCOUNTER → 2024-11-09 | Outpatient (CLI) | payer MEDICAID, SELFPAY ==
[2024-11-09 12:30] LABS: Vitamin D,25 Hydroxy 8.1 ng/mL
[2024-11-09 12:34] LABS: Absolute Lymphocyte Count 1.54 X10^3/uL (0.83-4.51); Absolute Neutrophil Count 4.3 X10^3/uL (2.0-7.7); Basophil# 0.03 X10^3/uL; Basophil% 0.5 % (0-1); Eosinophil# 0.16 X10^3/uL; Eosinophils% 2.5 % (0-5); Hematocrit 43.1 % (37-47); Lymphocyte # 1.54 X10^3/ul (0.83-4.51); Lymphocyte % 24.3 % (19-41); Mean Corp Hgb Conc 32.5 g/dL (32-36); Mean Corpuscular Hgb 30.2 pg (27.0-32.0); Mean Corpuscular Volume 92.9 fL (81-99); Mean Platelet Vol. 11.4 fl (6.2-12.0); Monocyte# 0.31 X10^3/uL; Monocyte% 4.9 % (0-10); NRBC Flagged by Analyzer 0 % (0-5); Neutrophil # 4.28 X10^3/uL (2.7-7.7); Neutrophil % 67.3 % (47-70); Platelet Count 246 K/mm3 (150-450); RBC Distribution Width SD 47.8 fl (35.1-43.9); Red Blood Count 4.64 M/mm3 (4.2-5.4); White Blood Count 6.4 K/mm3 (4.4-11.0)
[2024-11-09 13:15] LABS: ALB/GLOB Ratio 0.8 RATIO (0.9-2.4); AST(SGOT) 37 U/L (15-37); Alanine Aminotransfer ALT/SGPT 47 U/L (13-56); Albumin, Serum 3.2 g/dL (3.2-5.0); Alkaline Phosphatase 74 U/L (45-117); Anion Gap 5 (5-15); BUN 9 mg/dL (7-18); BUN/Creat Ratio 11.3 RATIO (10-20); Chloride 108 mmol/L (98-107); Cholesterol 209 mg/dL (200); Creatinine, Serum 0.79 mg/dL (0.55-1.02); EST Glomerular Filtration Rate 82 mL/min (>60); Est Glom Filt Rate - Afr Amer 99 mL/min (>60); Glucose 128 mg/dL (74-106); High Density Lipoprotein 60 mg/dL; Potassium 3.9 mmol/L (3.5-5.1); Protein, Total 7.2 g/dL (6.4-8.2); Sodium Level 136 mmol/L (136-145); Triglycerides 137 mg/dL; Very Low Density Lipoprotein 27 mg/dL (5-40)
[2024-11-09 15:12] LABS: Hemoglobin A1c 6.6 % (3.8-5.6)
== END | disposition home or self-care (01) ==
LOC: MFPLAB 10:23
PROVIDERS: PCP Family Medicine; Referring Provider Family Medicine; Visit Provider Family Medicine
DX: Z00.00 Encounter for general adult medical examination without abnormal findings (principal); E11.9 Type 2 diabetes mellitus without complications; E55.9 Vitamin D deficiency, unspecified; E03.9 Hypothyroidism, unspecified; E87.6 Hypokalemia; E78.5 Hyperlipidemia, unspecified
CPT/HCPCS: 36415; 80053; 80061; 82306; 83036; 84443; 85025

== ENCOUNTER → 2024-11-22 | Outpatient (CLI) | payer MEDICAID, SELFPAY ==
[2024-11-22 18:35] LABS: ALB/GLOB Ratio 0.8 RATIO (0.9-2.4); AST(SGOT) 28 U/L (15-37); Alanine Aminotransfer ALT/SGPT 44 U/L (13-56); Albumin, Serum 3.1 g/dL (3.2-5.0); Alkaline Phosphatase 70 U/L (45-117); Anion Gap 5 (5-15); BUN 8 mg/dL (7-18); BUN/Creat Ratio 10.8 RATIO (10-20); Calcium,Total 8.8 mg/dL (8.5-10.1); Chloride 108 mmol/L (98-107); Creatinine, Serum 0.74 mg/dL (0.55-1.02); EST Glomerular Filtration Rate 88 mL/min (>60); Est Glom Filt Rate - Afr Amer 107 mL/min (>60); Globulin 3.8 g/dL (2.2-4.2); Glucose 94 mg/dL (74-106); Potassium 3.6 mmol/L (3.5-5.1); Protein, Total 6.9 g/dL (6.4-8.2); Sodium Level 138 mmol/L (136-145)
== END | disposition home or self-care (01) ==
LOC: MFPLAB 16:57
PROVIDERS: PCP Family Medicine; Referring Provider Family Medicine; Visit Provider Family Medicine
DX: R19.7 Diarrhea, unspecified (principal)
CPT/HCPCS: 36415; 80053

== ENCOUNTER → 2024-12-06 | Outpatient (CLI) | payer MEDICAID, SELFPAY ==
[2024-12-14 11:08] LABS: Chlamydia By Nucleic Acid AMP Negative (Negative); Gonococcus By Nucleic Acid AMP Negative (Negative); Trich. Vag By Nucleic Acid AMP Negative (Negative)
[2024-12-16 10:40] LABS: HPV Reflexed? NOT INDICATED
== END | disposition home or self-care (01) ==
LOC: LABSPEC 15:52
PROVIDERS: PCP Family Medicine
DX: Z12.4 Encounter for screening for malignant neoplasm of cervix (principal)
CPT/HCPCS: 87491; 87591; 88175; G0145

== ENCOUNTER 2024-12-10 07:11 | Day surgery (SDC) | payer MEDICAID, SELFPAY ==
--- NOTE | 2024-12-09 10:52 | PAT.ANESEVAL ---
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 When Was Last Pacemaker Check QUESTION #4 FULL TEXT: You/Your Family Experience fever (hyperthermia) with Anesthesia Last Oral Intake Last Oral intake: Last Oral Intake NPO since Meds taken in AM with sips of water? Meds patient instructed to take am of surgery PONV PONV - athletic gear custodian: PONV - athletic gear custodian Female Yes 12/09/24 10:05 HX of Motion Sickness No 12/09/24 10:05 HX of N/V After Surgery Yes 12/09/24 10:05 Non-Smoker No 12/09/24 10:05 Duration of Surgery greater No 12/09/24 10:05 than 60 minutes Number of Risk Factors 2 12/09/24 10:05 PONV Score Moderate Risk 12/09/24 10:05 Height & Weight Height & Weight: Anesthesia: Height & Weight Height 5 ft 7 in 11/18/24 09:48 Respiratory Assessment Respiratory Assessment - athletic gear custodian: Respiratory Tract Infection Hx - athletic gear custodian Hx Respiratory Tract Infection No 12/09/24 10:05 STOP Sleep Apnea STOP Sleep Apnea - athletic gear custodian: STOP Sleep Apnea - athletic gear custodian Hx Hypertension No 12/09/24 10:05 Hx Sleep Apnea No 12/09/24 10:05 CPAP BIPAP Do you snore loudly (louder No 12/09/24 10:05 than talking or can be heard Do you often feel tired/ No 12/09/24 10:05 fatigued/ sleepy during daytime? Has anyone observed you stop No 12/09/24 10:05 breathing during sleep? STOP Results Negative 12/09/24 10:05 QUESTION #5 FULL TEXT : Do you snore loudly (louder than talking or can be heard through closed doors)? 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 Specify any problems Hx of Preganancy in last 3 N/A 12/09/24 10:05 Months Nurse Filling Out Transfusion NBUCHER 12/09/24 10:05 & Questions: Date: 12/09/24 12/09/24 10:05 Time: 10:06 12/09/24 10:05 Patient unable to answer at this time (ie. confused, unrespo /Reproduction History /Reproductive History - athletic gear custodian: /Reproductive Hx- athletic gear custodian Hx Now No 12/09/24 10:05 Gestational Age (in weeks): EDC: Hx Hx Para Hx Section SAB No 12/09/24 10:05 PFSH Medical History (Updated 12/09/24 @ 10:10 by Edith Metz) Wears glasses Thyroid disease Dietary restriction Diverticulosis History of echocardiogram History of heart attack GERD (gastroesophageal reflux disease) Diabetes Hx of colonic polyps Hypothyroid Home Medications ?Medication ?Instructions ?Recorded ?Last Taken ?Type levothyroxine 150 mcg tablet 175 mcg PO DAILY 04/08/22 Unknown History cholecalciferol (vitamin D3) 1,250 1,250 mcg PO QWEEK 11/18/24 Unknown History mcg (50,000 unit) capsule omeprazole 40 mg capsule,delayed 40 mg PO QDAY 11/18/24 Unknown History release Allergy/AdvReac Type Severity Reaction Status Date / Time Penicillins Allergy Severe Anaphylaxis Verified 12/09/24 10:03 Surgical History Hx of tubal ligation Hx of sinus surgery Hx of cholecystectomy Hx of tonsillectomy Hx of colonoscopy Social History (Updated 11/18/24 @ 09:40 by Rosy Sotelo) household members: family current occupational status: employed Smoking Status: Light Smoker (<10/day) substance use type: does not use Audit: Pertinent Findings Pertinent Findings EKG Perinent findings: NSR Echo (EF%) pertinent findings: Normal LV size. Left ventricular systolic function is normal. The left ventricular ejection fraction is 60 %. Mild concentric left ventricular hypertrophy. Pulmonary artery systolic pressure is 24 mmHg. Structurally normal valves. Recommendation Anesthesia Recommendation Anesthesia recommendation: OPTIMIZED for anesthesia
[2024-12-10] VITALS (7 sets, daily range): BP systolic 82–136; BP diastolic 60–86; PULSE 67–87; RESP 16–20; TEMP 36.3; O2SAT 97–100; BMI 46.9
--- NOTE | 2024-12-10 07:18 | PCM.PRE.AN2 ---
ASA Classification* ASA Classification ASA Classification: 2 Assessment & Plan Anesthesia* Anesthesia Assessment Anesthesia Assessment: Discussed sedation and/or anesthesia options, risks, benefits, and alternatives with patient/parents/legal guardian/POA. Questions invited. The patient/parents/legal guardian/POA seems to understand and agrees to proceed with anesthesia plan. Reviewed the physical assessment, medical history, allergy history and patient home medications list prior to surgery/procedure/anesthetic and documented any changes. Performed airway and anesthesia risk assessments. Anesthesia Type Anesthesia Type: MAC Anesthesia Focused Assessment* Airway Assessment Mouth opens: >3 cm Mallampati Score: II Focused Labs Anesthesia Preop lab: CBC WBC 6.4 K/mm3 (4.4-11.0) 11/09/24 10:11/09/24 RBC 4.64 M/mm3 (4.2-5.4) 11/09/24 10:11/09/24 Hgb 14.0 g/dL (12.0-15.0) 11/09/24 10:11/09/24 Hct 43.1 % (37-47) 11/09/24 10:11/09/24 Plt Count 246 K/mm3 (150-450) 11/09/24 10:11/09/24 CHEMISTRY Potassium 3.6 mmol/L (3.5-5.1) 11/22/24 16:58 11/22/24 Sodium 138 mmol/L (136-145) 11/22/24 16:58 11/22/24 BUN 8 mg/dL (7-18) 11/22/24 16:58 11/22/24 Creatinine 0.74 mg/dL (0.55-1.02) 11/22/24 16:58 11/22/24 Glucose 94 mg/dL (74-106) 11/22/24 16:58 11/22/24 TSH 22.300 uIU/mL (0.358-3.740) H 11/09/24 10:11/09/24 COAG Urine Test Negative Negative 04/30/22 11:20 04/30/22 Pre-Assessment Diagnosis/Proposed Procedure Planned Operative Procedure(s): CSCOPE Anesthesia History 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 When Was Last Pacemaker Check QUESTION #4 FULL TEXT: You/Your Family Experience fever (hyperthermia) with Anesthesia Last Oral Intake Last Oral intake: Last Oral Intake NPO since Meds taken in AM with sips of water? 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 Female Yes 12/09/24 10:05 HX of Motion Sickness No 12/09/24 10:05 HX of N/V After Surgery Yes 12/09/24 10:05 Non-Smoker No 12/09/24 10:05 Duration of Surgery greater No 12/09/24 10:05 than 60 minutes Number of Risk Factors 2 12/09/24 10:05 PONV Score Moderate Risk 12/09/24 10:05 Height & Weight Height & Weight: Anesthesia: Height & Weight Height 5 ft 7 in 11/18/24 09:48 Respiratory Assessment Respiratory Assessment - boring and filling machine operator: Respiratory Tract Infection Hx - boring and filling machine operator Hx Respiratory Tract Infection No 12/09/24 10:05 STOP Sleep Apnea STOP Sleep Apnea - boring and filling machine operator: STOP Sleep Apnea - boring and filling machine operator Hx Hypertension No 12/09/24 10:05 Hx Sleep Apnea No 12/09/24 10:05 CPAP BIPAP Do you snore loudly (louder No 12/09/24 10:05 than talking or can be heard Do you often feel tired/ No 12/09/24 10:05 fatigued/ sleepy during daytime? Has anyone observed you stop No 12/09/24 10:05 breathing during sleep? STOP Results Negative 12/09/24 10:05 QUESTION #5 FULL TEXT : Do you snore loudly (louder than talking or can be heard through closed doors)? 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 Specify any problems Hx of Preganancy in last 3 N/A 12/09/24 10:05 Months Nurse Filling Out Transfusion NBUCHER 12/09/24 10:05 & Questions: Date: 12/09/24 12/09/24 10:05 Time: 10:06 12/09/24 10:05 Patient unable to answer at this time (ie. confused, unrespo /Reproduction History /Reproductive History - boring and filling machine operator: /Reproductive Hx- boring and filling machine operator Hx Now No 12/09/24 10:05 Gestational Age (in weeks): EDC: Hx Hx Para Hx Section SAB No 12/09/24 10:05 PFSH Medical History Wears glasses Thyroid disease Dietary restriction Diverticulosis History of echocardiogram History of heart attack GERD (gastroesophageal reflux disease) Diabetes Hx of colonic polyps Hypothyroid Home Medications ?Medication ?Instructions ?Recorded ?Last Taken ?Type levothyroxine 150 mcg tablet 175 mcg PO DAILY 04/08/22 Unknown History cholecalciferol (vitamin D3) 1,250 1,250 mcg PO QWEEK 11/18/24 Unknown History mcg (50,000 unit) capsule omeprazole 40 mg capsule,delayed 40 mg PO QDAY 11/18/24 Unknown History release Allergy/AdvReac Type Severity Reaction Status Date / Time Penicillins Allergy Severe Anaphylaxis Verified 12/09/24 10:03 Surgical History Hx of tubal ligation Hx of sinus surgery Hx of cholecystectomy Hx of tonsillectomy Hx of colonoscopy Social History household members: family current occupational status: employed Smoking Status: Light Smoker (<10/day) substance use type: does not use Review of Systems (Anesthesia) ROS Narrative System reviewed and no additional complaints, except as documented.
--- NOTE | 2024-12-10 07:52 | PCM.HP.STD ---
HPI - General General Date of Admission: 12/10/24 Date of Service: 12/10/24 Chief Complaint: Surveillance colonoscopy HPI Narrative MI SILVERMAN, is a 49 F who presents for surveillance colonoscopy. She does have a history of polyps. She states her last colonoscopy was about 7 or 8 years ago. She denies any new issues or problems from a GI standpoint. She states that her father had colon polyps but she is not aware of any colon cancers in the family. [facility] Medical History Wears glasses Thyroid disease Dietary restriction Diverticulosis History of echocardiogram History of heart attack GERD (gastroesophageal reflux disease) Diabetes Hx of colonic polyps Hypothyroid Home Medications ?Medication ?Instructions ?Recorded ?Last Taken ?Type levothyroxine 150 mcg tablet 175 mcg PO DAILY 04/08/22 Unknown History cholecalciferol (vitamin D3) 1,250 1,250 mcg PO QWEEK 11/18/24 Unknown History mcg (50,000 unit) capsule omeprazole 40 mg capsule,delayed 40 mg PO QDAY 11/18/24 Unknown History release Allergy/AdvReac Type Severity Reaction Status Date / Time Penicillins Allergy Severe Anaphylaxis Verified 12/10/24 07:33 Surgical History Hx of tubal ligation Hx of sinus surgery Hx of cholecystectomy Hx of tonsillectomy Hx of colonoscopy Social History household members: family current occupational status: employed Smoking Status: Light Smoker (<10/day) substance use type: does not use Vital Signs Vital Signs Vital Signs: 12/10/24 07:34 12/10/24 07:34 Temperature 97.4 F L Temperature Source Temporal Pulse Rate 72 Respiratory Rate 16 Respiratory Pattern Normal Blood Pressure 136/86 H Blood Pressure Mean 102 Blood Pressure Source Monitor Blood Pressure Position Semi-Fowlers Blood Pressure Location Left Forearm Pulse Ox 100 Oxygen Delivery Method Room Air Weight Weight: 299 lb 9.731 oz Body Mass Index (BMI) 46.9 Physical Exam Const alert, oriented x3 and no apparent distress Assessment & Plan Assessment/Plan (1) Encounter for screening for malignant neoplasm of colon: PLAN: Plan The patient is a 49-year-old female who is being seen today for colonoscopy. Her last colonoscopy was about 7 or 8 years ago. She does have a personal history of polyps as well as a family history of polyps. We discussed the details of the planned procedure as well as risk benefits and alternatives. She wishes to proceed. This will begin momentarily. Charges/Coding Visit Charges Inpatient E&M: 90840 Init Hosp L1
--- NOTE | 2024-12-10 08:15 | EGD_PTH ---
PATIENT: ANDRADECEMBER MELANIE LOC: EN U#:[id number] AGE/SX: 49/F ROOM: RE12/10/[address]: Dr. Maxx Lino MD : 1975 BED: DIS: 12/10/2024 SPEC #: [id number] RECD: 12/10/24 13:32 STATUS: CHARLI MACARIO #: [id number] ERIC: 12/10/24 08:[address]: Maxx Lino DEPT: SURGICAL PATHOLOGY RECD BY: Endy Armenta ENTERED: 12/10/24 13:32 SP TYPE: EGD BIOPSY OTHR DR: Citlalli Malone MD Tissues: A - Cecum, NOS B - Sigmoid colon biopsy Procedures: Surgery Specimen Level IV HEADER OPERATION: Colonoscopy PRE-OP DIAGNOSIS: Surveillance colonoscopy TISSUE SUBMITTED: A- Cecal polyp, B- Sigmoid polyp biopsy MICROSCOPIC DIAGNOSIS A. Colon, cecum, polyp, biopsy: * Sessile serrated lesion. B. Colon, sigmoid, polyp, biopsy: * Hyperplastic polyp. MICROSCOPIC DESCRIPTION Slides are reviewed. GROSS DESCRIPTION A. Received in fixative is one container labeled with the patient's name and designated Cecal polyp. The specimen consists of one irregular fragment of light boles soft tissue that measures 0.5 x 0.3 x 0.2 cm. The specimen is totally submitted in one cassette. B. Received in fixative is one container labeled with the patient's name and designated Sigmoid polyp biopsy. The specimen consists of two irregular fragments of light boles soft tissue that in aggregate measure 1.2 x 0.2 x 0.2 cm. The specimen is totally submitted in one cassette. Maria Isabel 12/10/2024 CPT:17356x7
[2024-12-10 08:22] LABS: Bedside Glucose 121 mg/dL (74-106)
--- NOTE | 2024-12-10 08:34 | OP.COLON_ITS ---
Patient Name: December Ian Procedure Date: 12/10/2024 7:49 AM Date of : 1975 Age: 49 Procedure: Colonoscopy Indications: High risk colon cancer surveillance: Personal history of colonic polyps Providers: Maxx Lino MD Referring MD: Citlalli Malone Md Medicines: Monitored Anesthesia Care Patient Profile: Refer to note in patient chart for documentation of history and physical. Last Colonoscopy: several years ago. Complications: No immediate complications. Estimated blood loss: Minimal. Procedure: Pre-Anesthesia Assessment: - Prior to the procedure, a History and Physical was performed, and patient medications and allergies were reviewed. The patient's tolerance of previous anesthesia was also reviewed. The risks and benefits of the procedure and the sedation options and risks were discussed with the patient. All questions were answered, and informed consent was obtained. Prior Anticoagulants: The patient has taken no anticoagulant or antiplatelet agents. ASA Grade Assessment: II - A patient with mild systemic disease. After reviewing the risks and benefits, the patient was deemed in satisfactory condition to undergo the procedure. After I obtained informed consent, the scope was passed under direct vision. Throughout the procedure, the patient's blood pressure, pulse, and oxygen saturations were monitored continuously. The adult colonoscope was introduced through the anus and advanced to the cecum, identified by appendiceal orifice and ileocecal valve. The ileocecal valve, appendiceal orifice, and rectum were photographed. The entire colon was well visualized. The colonoscopy was performed without difficulty. The patient tolerated the procedure well. The quality of the bowel preparation was adequate. Moderate Sedation: See the other procedure note for documentation of moderate sedation with intraservice time. Scope In: 8:07:24 AM Scope Withdrawal Time 0 hours 13 minutes 9 seconds Scope Out: 8:26:55 AM Total Procedure Duration Time 0 hours 19 minutes 31 seconds Findings: The perianal and digital rectal examinations were normal. A 3 mm polyp was found in the cecum. The polyp was semi-sessile. The polyp was removed with a cold biopsy forceps. Resection and retrieval were complete. Verification of patient identification for the specimen was done by the nurse using the patient's name, date and medical record number. Estimated blood loss was minimal. A 3 mm polyp was found in the sigmoid colon. The polyp was semi-sessile. The polyp was removed with a cold biopsy forceps. Resection and retrieval were complete. Verification of patient identification for the specimen was done by the nurse using the patient's name, date and medical record number. Estimated blood loss was minimal. Internal hemorrhoids were found during retroflexion. The hemorrhoids were moderate. The exam was otherwise without abnormality on direct and retroflexion views. Impression: - One 3 mm polyp in the cecum, removed with a cold biopsy forceps. Resected and retrieved. - One 3 mm polyp in the sigmoid colon, removed with a cold biopsy forceps. Resected and retrieved. - Internal hemorrhoids. - The examination was otherwise normal on direct and retroflexion views. Recommendation: - Discharge patient to home (ambulatory). - High fiber diet. - Await pathology results. - Repeat colonoscopy in 3 - 5 years for surveillance. - Return to my office PRN. - Continue present medications. Procedure Code(s): --- Professional --- 90464, Colonoscopy, flexible; with biopsy, single or multiple Diagnosis Code(s): --- Professional --- Z86.010, Personal history of colonic polyps D12.0, Benign neoplasm of cecum K64.8, Other hemorrhoids D12.5, Benign neoplasm of sigmoid colon CPT copyright 2021 [employer]. All rights reserved. The codes documented in this report are preliminary and upon health information coder review may be revised to meet current compliance requirements. Maxx Lino MD 12/10/2024 8:33:26 AM This report has been signed electronically. Number of Addenda: 0 Note Initiated On: 12/10/2024 7:49 AM
--- NOTE | 2024-12-10 08:34 | OP.CCLET_ITS ---
12/10/2024 Citlalli Malone Md Re : Colonoscopy procedure for Ania Marshall Faisal This procedure was performed on Tuesday, December 10, 2024. My impressions and recommendations are as follows: Impressions : - One 3 mm polyp in the cecum, removed with a cold biopsy forceps. Resected and retrieved. - One 3 mm polyp in the sigmoid colon, removed with a cold biopsy forceps. Resected and retrieved. - Internal hemorrhoids. - The examination was otherwise normal on direct and retroflexion views. Recommendations : - Discharge patient to home (ambulatory). - High fiber diet. - Await pathology results. - Repeat colonoscopy in 3 - 5 years for surveillance. - Return to my office PRN. - Continue present medications. My findings are described in the full procedure note, which is enclosed. If I can be of further assistance, please feel free to contact me at . Sincerely, Maxx Lino MD 12/10/2024 8:33:26 AM This report has been signed electronically.
--- NOTE | 2024-12-10 08:36 | PCM.POST.ANE ---
Anesthesia: Postop Eval I Current Vital Signs Temperature: 97.3 F Pulse Rate: 80 Blood Pressure: 82/60 Respiratory Rate: 20 Pulse Ox: 97 Oxygen Delivery Method: Room Air Assessment Airway patent: Yes Spontaneous unlabored respirations: Yes Mental status: Awake and Calm nausea: No Vomiting: No Anesthesia Complication: No Fluid Hydration Crystalloid volume administer (ml): 20 Total IV fluid infused: 20 Progress Note Anesthesia document: Postop Eval 1 completed: Yes
--- NOTE | 2024-12-10 09:33 | POSTOPAN2_ITS ---
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 Spontaneous unlabored Yes 12/10/24 08:37 ELECTR[email or web address] respirations Mental status Awake,Calm 12/10/24 08:37 [email or web address] nausea No 12/10/24 08:37 ELECTRIC [email or web address] Vomiting No 12/10/24 08:37 [email or web address] Anesthesia Postop Eval I: Fluid Summary Crystalloid volume administer 20 12/10/24 08:37 [email or web address] (ml) Colloids volume administered ( ml) Blood Product volume administered (ml) Total IV fluid infused 20 12/10/24 08:37 [email or web address] Anesthesia Postop Eval I: Summary Notes Anesthesia Complication No 12/10/24 08:37 [email or web address] Anesthesia Complication Comment: Post-operative progress note Anesthesia: Postop Eval II Evaluation Mental status: Awake Pain Level: 0 nausea: No Vomiting: No
--- NOTE | 2024-12-10 09:33 | PCM.POSTANE2 ---
Anesthesia Postop Eval I Sum Postop Eval Completion status Anesthesia document: Postop Eval 1 completed: Yes Anesthesia Postop Eval I Summary Anesthesia Postop Eval I Summary: Anesthesia Postop Eval I: Assessment Summary Airway patent Yes 12/10/24 08:37 [email or web address] Spontaneous unlabored Yes 12/10/24 08:37 [email or web address] respirations Mental status Awake,Calm 12/10/24 08:37 [email or web address] nausea No 12/10/24 08:37 [email or web address] Vomiting No 12/10/24 08:37 [email or web address] Anesthesia Postop Eval I: Fluid Summary Crystalloid volume administer 20 12/10/24 08:37 [email or web address] (ml) Colloids volume administered ( ml) Blood Product volume administered (ml) Total IV fluid infused 20 12/10/24 08:37 [email or web address] Anesthesia Postop Eval I: Summary Notes Anesthesia Complication No 12/10/24 08:37 [email or web address] Anesthesia Complication Comment: Post-operative progress note Anesthesia: Postop Eval II Evaluation Mental status: Awake Pain Level: 0 nausea: No Vomiting: No
== END 2024-12-10 09:10 | disposition home or self-care (01) ==
LOC: EN 07:12 → AC 07:13
PROVIDERS: PCP Family Medicine; Referring Provider Family Medicine; Visit Provider Surgery
PROC: 0DJD8ZZ Inspection of Lower Intestinal Tract, Via Natural or Artificial Opening Endoscopic (ICD-10-PCS; CPT 45378; principal; 2024-12-10 08:10)
DX: Z12.11 Encounter for screening for malignant neoplasm of colon (principal); E11.9 Type 2 diabetes mellitus without complications; K64.8 Other hemorrhoids; Z86.0100 Personal history of colon polyps, unspecified; D12.5 Benign neoplasm of sigmoid colon; D12.0 Benign neoplasm of cecum; E03.9 Hypothyroidism, unspecified; I25.2 Old myocardial infarction; K21.9 Gastro-esophageal reflux disease without esophagitis; Z98.51 Tubal ligation status; Z90.49 Acquired absence of other specified parts of digestive tract; F17.210 Nicotine dependence, cigarettes, uncomplicated
CPT/HCPCS: 45380; 82962; 88305; A4216

== ENCOUNTER → 2024-12-20 | Outpatient (CLI) | payer MEDICAID, SELFPAY | END | disposition home or self-care (01) | LOC: MFPLAB 08:36 | PROVIDERS: PCP Family Medicine; Referring Provider Family Medicine; Visit Provider Family Medicine | DX: E03.9 Hypothyroidism, unspecified (principal) | CPT/HCPCS: 36415; 84443 ==

== ENCOUNTER → 2025-02-15 | Outpatient (CLI) | payer MEDICAID, SELFPAY ==
[2025-02-15 12:57] LABS: Thyroid Stim Hormone (TSH) 0.049 uIU/mL (0.300-4.200)
== END | disposition home or self-care (01) ==
LOC: MFPLAB 10:45
PROVIDERS: PCP Family Medicine; Referring Provider Family Medicine; Visit Provider Family Medicine
DX: E03.9 Hypothyroidism, unspecified (principal)
CPT/HCPCS: 36415; 84443

== ENCOUNTER → 2025-04-14 | Outpatient (CLI) | payer MEDICAID, SELFPAY ==
[2025-04-14 11:50] LABS: Follicle Stimulating Hormone 7.6 mIU/mL
[2025-04-15 09:09] LABS: PROGESTERONE 0.4 ng/mL (.)
[2025-04-18 22:07] LABS: Estrogen, Total, Serum 456 pg/mL (.)
== END | disposition home or self-care (01) ==
LOC: MFPLAB 08:55
PROVIDERS: PCP Family Medicine; Referring Provider Family Medicine; Visit Provider Family Medicine
DX: N95.1 Menopausal and female climacteric states (principal); E03.9 Hypothyroidism, unspecified
CPT/HCPCS: 36415; 82672; 83001; 83002; 84144; 84443

== ENCOUNTER 2025-05-23 08:31 | Emergency (ER) | payer MEDICAID, SELFPAY ==
[2025-05-23 08:32] VITALS: BP 139/101; PULSE 85; RESP 16; TEMP 36.5; O2SAT 100; BMI 41.2
--- NOTE | 2025-05-23 08:44 | ED.VIS.BACK ---
HPI History of Present Illness Chief Complaint: Back Informant: patient Onset/Context/Timing Onset: Weeks (2) Timing: Continuous Quality: Sharp Location: Lumbar Worsened by: improves with - (Sitting) Relieved by: Nothing Associated Symptoms Associated Symptoms: Negative for Numbness, Tingling, Radiation to Right Leg, Radiation to Left Leg, Fever, Abdominal Pain, Dysuria, Unable to Ambulate, Unable to Transfer, Urinary Retention, Urinary Incontinence, Constipation or Fecal Incontinence Narrative Narrative: Patient presents with low back pain that has been getting worse over the past 2 weeks. Patient states she has had prior back surgery due to lumbar disc disease and sciatica. Patient states she had a laminectomy 4 years ago but did not have a fusion. The patient states her pain does not radiate down her legs. Patient states her pain is worse with sitting. Patient states it is better with standing. Patient denies any paresthesias or weakness. Patient denies any bowel or bladder changes. Patient denies any saddle anesthesia. [facility] Medical History Wears glasses Thyroid disease Dietary restriction Diverticulosis History of echocardiogram History of heart attack GERD (gastroesophageal reflux disease) Diabetes Hx of colonic polyps Hypothyroid Home Medications ?Medication ?Instructions ?Recorded ?Last Taken ?Type cyclobenzaprine 10 mg tablet 10 mg PO QHS PRN PRN Muscle Spasm 05/23/25 Unknown Rx #10 TABLETS hydrocodone-acetaminophen 5-325mg 1 tab PO Q6H PRN PRN Pain 3 days 05/23/25 Unknown Rx 5mg-325mg #10 TABLETS levothyroxine 175 mcg tablet 175 mcg PO DAILY 05/23/25 Unknown History Allergy/AdvReac Type Severity Reaction Status Date / Time Penicillins Allergy Severe Anaphylaxis Verified 05/23/25 08:32 Surgical History (Updated 05/23/25 @ 09:[address] Dustin Greco, DO) History of lumbar laminectomy Hx of tubal ligation Hx of sinus surgery Hx of cholecystectomy Hx of tonsillectomy Hx of colonoscopy Social History household members: family current occupational status: employed Smoking Status: Light Smoker (<10/day) substance use type: does not use ROS ROS ED Constitutional Constitutional ED: Denies chills or fever(s) Eyes Eyes: Denies blurry vision or change in vision ENT ENT ED: Denies rhinorrhea or sore throat Cardiovascular Cardiovascular: Denies chest pain or palpitations Respiratory/Chest Respiratory/Chest: Denies cough or dyspnea Gastrointestinal Gastrointestinal: Denies nausea or vomiting Genitourinary Genitourinary ED: Denies dysuria or hematuria Musculoskeletal Musculoskeletal: Reports back pain; Denies neck pain Integumentary Denies abscess or rash Neurologic Neurologic: Denies headache(s) or weakness Allergic/Immunologic Allergic/Immunologic ED: Denies mouth swelling or urticaria EXAM Physical Exam Const Vital Signs: 05/23/25 08:32 Temperature 97.7 F L Temperature Source Temporal Pulse Rate 85 Respiratory Rate 16 Blood Pressure 139/101 H Blood Pressure Mean 113 Pulse Ox 100 Oxygen Delivery Method Room Air Positive well nourished and well developed Constitutional Narrative: BMI is 41.2. General Appearance ED: well developed and NAD HEENT Reports moist mucous membranes Neck supple and no JVD Back/Spine Back/Spine Narrative: There is minimal tenderness over the lower lumbar paraspinal muscles on the right. There is no edema or ecchymosis. There is no bony crepitance or step-off. Range of motion is limited in all motions secondary to pain. Lumbar Spine / Lower Back: ROM limited and straight leg raise negative bilaterally Extremity normal to inspection General Extremety ED: Negative for edema or tenderness General Extremity: Negative for edema Neuro oriented x3 and no sensory deficits noted Sensorium / Orientation: alert Motor Exam: strength 5/5 throughout Deep Tendon Reflexes: Rt Patellar (L4): 2+, Lt Patellar (L4): 2+, Rt Ankle (S1): 2+ and Lt Ankle (S1): 2+ Deep Tendon Reflexes Back: Rt Patellar (L4): 2+, Lt Patellar (L4): 2+, Rt Ankle (S1): 2+ and Lt Ankle (S1): 2+ Psych mental status grossly normal MDM MDM MDM Narrative Medical decision making narrative: Differential diagnosis includes spondylolisthesis, compression fracture, lumbosacral strain, and sciatica. X-rays of the lumbar spine will be obtained to assess for spondylolisthesis and compression fracture. Radiography X-Ray: No Fracture, Normal Bony Alignment, Osteophytes (Mild), Spondylolisthesis and Disk Space Narrowing Diagnostic Testing: Clinical Impression(s) from Imaging Studies Lumbar Spine X-Ray 05/23/25 09:21 IMPRESSION: Disc space narrowing at the L4-L5 and L5-S1 levels and prior laminectomy. Exaggerated lumbar lordosis. Reading Location: [id number] X-rays of the lumbar spine were obtained. There are 3 views. On my independent interpretation, there is no acute fracture. There is no spondylolisthesis noted. There is some disc space narrowing at L4-L5 and L5-S1. There are some mild degenerative changes noted. Radiologist also interpreted the x-rays and agrees. Treatment and Re-Evaluation Narrative: Patient was given an injection of Toradol here. Patient was feeling somewhat better on reevaluation. Patient was advised of her findings. Patient was given prescriptions for a short course of [place] and Flexeril to take at bedtime. Patient was instructed to follow-up with her spine surgeon and primary care physician in 5 to 7 days. Patient was instructed to return if worse in any way. Patient understood and was agreeable with the plan. All questions were answered. Discharge Plan Triage Chief Complaint: Back ED Provider: Dustin Greco Dx/Rx/DC Orders Clinical Impression: Acute low back pain, Elevated blood pressure reading Instructions: ED Back Pain (Acute or Chronic) Prescriptions: New hydrocodone-acetaminophen 5-325 mg tablet 1 tab PO Q6H PRN PRN (Reason: Pain) 3 Days Qty: 10 0RF cyclobenzaprine 10 mg tablet 10 mg PO QHS PRN PRN (Reason: Muscle Spasm) Qty: 10 0RF No Action levothyroxine 175 mcg tablet 175 mcg PO DAILY Primary Care Provider: Citlalli Malone Referrals: Citlalli Malone MD [Primary Care Provider] - 5-7 Days Activity Restrictions/Additional Instructions: Follow-up with your spine surgeon in 5 to 7 days as well. Print Language: Afghan Disposition Disposition: Home, Self Care
--- NOTE | 2025-05-23 09:21 | RAD_ITS ---
PROCEDURE: LUMBAR SPINE 2 OR 3 VIEWS 05/23/2025 REASON FOR EXAM: INJURY/PAIN TECHNIQUE: LUMBAR SPINE 2 OR 3 VIEWS COMPARISON: None FINDINGS: Vertebrae: Vertebral heights are well-maintained. Discs: Moderate degree of disc space narrowing at the L4-L5 and L5-S1 levels. Findings suggestive of prior laminectomy at the L4-L5 and L5-S1 levels. Alignment: Exaggerated lumbar lordosis. Other: Surgical clips are seen in the right upper quadrant suggestive of prior cholecystectomy. Vascular calcification. RAD/Lumbar Spine 2 or 3 Views IMPRESSION: Disc space narrowing at the L4-L5 and L5-S1 levels and prior laminectomy. Exaggerated lumbar lordosis. Reading Location: [facility]
[2025-05-23 10:30] VITALS: BP 139/101; PULSE 85; RESP 16; TEMP 36.5; O2SAT 100
== END 2025-05-23 10:33 | disposition home or self-care (01) ==
PROVIDERS: Emergency Provider Emergency Medicine; PCP Family Medicine; Visit Provider Emergency Medicine
DX: M54.50 Low back pain, unspecified (principal); E11.9 Type 2 diabetes mellitus without complications; F17.200 Nicotine dependence, unspecified, uncomplicated; R03.0 Elevated blood-pressure reading, without diagnosis of hypertension; K21.9 Gastro-esophageal reflux disease without esophagitis; E03.9 Hypothyroidism, unspecified; Z79.890 Hormone replacement therapy
CPT/HCPCS: 72100; 96372; 99282

== ENCOUNTER → 2025-06-23 | Outpatient (CLI) | payer MEDICAID, SELFPAY | END | disposition home or self-care (01) | LOC: MFPLAB 10:10 | PROVIDERS: PCP Family Medicine; Visit Provider Family Medicine | DX: R63.4 Abnormal weight loss (principal) | CPT/HCPCS: 36415; 84443 ==